=== PATIENT | female | born 1960 | race Caucasian/White ===

== ENCOUNTER 2022-01-05 15:09 | Inpatient (IN) ==
[2022-01-05] MEDS ORDERED: 0.9 % SODIUM CHLORIDE 1,000 ML IV ONE (15:30)
[2022-01-05 15:42] LABS: POC Blood Urea Nitrogen < 3 (6-20); POC Calcium, Ionized 0.96 (1.16-1.32); POC Chloride 87 (96-108); POC Glucose, Random 76 (70-105); POC Potassium 2.7 (3.3-5.1); POC Sodium 122 (133-145)
[2022-01-05] MEDS ORDERED: HYDROmorphone 0.5 MG/0.5 ML SYRINGE IV ONE (15:55)
[2022-01-05] MEDS ORDERED: DIPH,PERTUSS(ACELL),TET VAC/PF 0.5 ML SYRINGE IM ONE (15:55)
--- NOTE | 2022-01-05 15:58 | XRay Report ---
HISTORY: Fell with left wrist injury FINDINGS: There is an acute severely comminuted intra-articular fracture the distal radius. There is impaction of the distal end of the bone with dorsal angulation. The carpal bones remain aligned with the fractured radius. The carpal bones are normally aligned with one another and there is no fracture of the carpal bones. The overlying soft tissues are swollen. Distal ulna is normal. IMPRESSION: Comminuted fracture of the distal radius with significant deformity Interpreted and Authenticated by: Reza Sampson 01/05/22
--- NOTE | 2022-01-05 16:18 | Cat Scan Report ---
History: Fell with head and neck injuries TECHNIQUE: The brain was imaged without contrast in axial plane at 2.5 mm intervals. The radiation exposure was limited using dose reduction technology. FINDINGS: There is a small scalp hematoma in the left temporal region, lateral to the left orbit. There are few tiny bubbles of air beneath the laceration. The adjacent bones are normal. Although the orbits are not completely visualized, there is no evidence of an orbital fracture and there is no intraorbital hemorrhage or edema. No skull fracture is present. There is no intracranial hemorrhage or cerebral edema. Patient has generalized atrophy both above and below the tentorium with the greatest involvement around the sylvian fissures. There is no mass effect. Ventricles are prominent but proportionate to the atrophy. No abnormal extra-axial fluid collection is present. IMPRESSION: Small hematoma beneath the skin laceration in the left temporal region. No fracture Age-related degenerative changes and no evidence of acute brain injury Dr. Benjamin was called with the results Interpreted and Authenticated by: Reza Sampson 01/05/22
--- NOTE | 2022-01-05 16:18 | Cat Scan Report ---
History: Fell, neck and head injury TECHNIQUE: The neck was imaged without contrast in axial plane at 2.5 mm intervals. Sagittal and coronal reformats were created. The radiation exposure was limited using dose reduction technology. FINDINGS: The cervico-occipital junction is normal. The vertebral bodies are normal in height. There is no fracture or spondylolisthesis. There is mild osteoarthritis at several levels. The greatest degeneration is in the right side facet at C3-4 resulting in moderate stenosis of the right-sided neural foramen. There is also moderate stenosis of the left-sided neural foramen at C3-4 due to spurs. Mild arthritis is present in the facets bilaterally at C4-5, C5-6 and C6-7. The disc spaces are normal in height. There is no prevertebral soft tissue swelling. There are are small ill-defined zones of groundglass alveolar opacification in the posterior apical segment left upper lobe and to a lesser extent in the posterior apical segment of the right upper lobe. This could be due to atelectasis or low level nonspecific inflammation. Visualized portions of the ribs clavicles and upper thoracic vertebra are normal without evidence of a fracture. IMPRESSION: No fracture Arthritis at several levels resulting in stenosis of the neural foramina Dr. Benjamin was called with the report Interpreted and Authenticated by: Reza Sampson 01/05/22
[2022-01-05] MEDS ORDERED: HYDROmorphone 1 MG/ML SYRINGE ONE (16:24)
[2022-01-05 16:33] LABS: Basophils # (Auto) 0.04 K/mcL (0.00-0.30); Basophils % (Auto) 0.7 % (0.0-2.0); Eosinophils # (Auto) 0.05 K/mcL (0.00-0.70); Eosinophils % (Auto) 0.9 % (0.0-7.0); Hematocrit 29.5 % (34.1-44.9); Hemoglobin 10.5 g/dL (11.2-15.7); Lymphocytes # (Auto) 1.18 K/mcL (1.50-4.80); Mean Cell Volume 101.4 fL (80.0-100.0); Mean Corpuscular HGB Conc 35.6 g/dL (31.0-36.0); Monocytes # (Auto) 0.79 K/mcL (0.10-0.90); Neutrophils % (Auto) 63.4 % (38.0-78.0); Platelet Count 325 K/mcL (140-440); RBC 2.91 M/mcL (3.59-5.38); Red Cell Distribution Width 14.1 % (11.5-14.5); WBC 5.6 K/mcL (4.5-11.0)
--- NOTE | 2022-01-05 16:40 | XRay Report ---
HISTORY: Post reduction of fractured left radius FINDINGS: There is improved alignment following closed reduction of the fracture distal radius. The dorsal angulation seen on the earlier study has been corrected. There is still impaction and lateral deviation of the distal radius. There is very little separation of bone at the articular surface. IMPRESSION: Residual deformity in the wrist. There has been moderate improvement in the alignment following closed reduction Interpreted and Authenticated by: Reza Sampson 01/05/22
[2022-01-05] MEDS ORDERED: POTASSIUM CHLORIDE 40 MEQ in DEXTROSE 5% IN WATER 500 ML IV ONE (16:50)
[2022-01-05 16:51] LABS: Alcohol,Blood 0.252 gm/dL (<0.010)
[2022-01-05] MEDS ORDERED: HYDROmorphone 1 MG/ML SYRINGE IV ONE (16:54)
[2022-01-05 16:56] LABS: ALT/SGPT 48 U/L (<40); AST/SGOT 82 U/L (<32); Albumin 3.6 gm/dL (3.2-5.2); Alkaline Phosphatase 192 U/L (39-117); Bilirubin,Direct < 0.2 mg/dL (0-0.3); Bilirubin,Total 0.3 mg/dL (0.1-1.0); Globulin 2.6 gm/dL (2.2-3.7)
--- NOTE | 2022-01-05 17:10 | XRay Report ---
HISTORY: Fell, fractured distal left radius FINDINGS: Three views of the left elbow were obtained. The bones are partially obscured by overlying plaster cast material. There is no evidence of fracture or dislocation. Joint spaces are normal in width. IMPRESSION: Limited exam, without evidence of a fracture Interpreted and Authenticated by: Reza Sampson 01/05/22
--- NOTE | 2022-01-05 17:12 | XRay Report ---
HISTORY: Postreduction fractured left distal radius FINDINGS: There is a comminuted intra-articular fracture the distal radius. On the lateral view there is a fragment arising from the volar side of the distal radius which is rotated and displaced proximally. The alignment has shifted compared with the post reduction image done earlier on the same date. There still impaction fracture sites with foreshortening of the radius. IMPRESSION: Abnormal rotation and displacement of a large bone fragment along the volar side of the distal radius Interpreted and Authenticated by: Reza Sampson 01/05/22
--- NOTE | 2022-01-05 17:32 | Emergency Department Note ---
HPI General Chief complaint: Head Injury Stated complaint: fall Time Seen by Provider: 01/05/22 15:20 Mode of arrival: wheelchair History of Present Illness HPI Narrative: Narrative: Patient presents to the emergency department with a syncopal episode. The patient was a ground-level she reports that she just blacked out. Patient denies any chest pain, lightheadedness or palpitations. Patient is complaining of left wrist pain and headache. She sustained a laceration to the left forehead. She is unsure of her tetanus status. Her reports that she has had falls previously and has been told that it is related to alcohol consumption. Patient states that she does not drink every day and maybe has 12 beers a week. She states that she has gone several days without drinking. The states that she actually drinks about 12 beers a day he does not recall any period of time where she has abstained from drinking. He denies ever having a alcohol withdrawal seizure. Related Data Home Medications Medication Instructions Recorded Confirmed cholecalciferol (vitamin D3) 50 2,000 unit PO .MWF cap 11/29/20 01/05/22 mcg (2,000 unit) capsule ibuprofen 200 mg tablet 200 mg PO BID 01/05/22 01/05/22 Previous Rx's Medication Instructions Recorded pantoprazole 40 mg tablet,delayed 40 mg PO QAM #90 tab 05/03/21 release duloxetine 60 mg capsule,delayed See Rx Instructions .ROUTE 05/10/21 release .COMPLEX #90 capsule amlodipine 5 mg tablet 5 mg PO QHS #90 tab 05/23/21 sodium chloride 1 gram tablet 2,000 mg PO .MWF #90 tab 05/23/21 alendronate 70 mg tablet 70 mg PO QWEEK #14 tab 07/28/21 losartan 50 mg tablet See Rx Instructions .ROUTE 11/07/21 .COMPLEX #60 tab rosuvastatin 10 mg tablet 10 mg PO QDAY #90 tab 12/12/21 bupropion HCl 75 mg tablet 150 mg PO QDAY #60 tab 12/15/21 hydrocodone 7.5 mg-acetaminophen 1 tab PO Q4-6H PRN #120 tab 01/05/22 325 mg tablet Allergies Allergy/AdvReac Type Severity Reaction Status Date / Time No Known Drug Allergies Allergy Verified 01/05/22 15:12 Review of Systems ROS ROS Narrative: Narrative: All systems ED: reviewed and negative except as stated. PFSH Narrative Patient History Narrative: Narrative: Medical/Surgical/Family History All Active Problems (Updated 01/05/22 @ 19:[address] Can[address] MD) Alcohol withdrawal (Acute) Acute hyponatremia (Acute) Acute hypokalemia (Acute) Fracture of left wrist (Acute) CAD (coronary artery disease) (Acute) Pulmonary nodule (Acute) Aphthous stomatitis (Acute) Candidiasis of mouth (Acute) Anemia (Acute) Pharyngitis (Acute) Encounter for medication management (Acute) Fracture of rib of left side (Acute) Urinary incontinence (Acute) Elevated liver enzymes (Acute) Hx of bone density study (Chronic 01/22/18) H/O mammogram (Chronic 05/06/19) Hemorrhoids (Chronic) Nervousness (Chronic) Bowel trouble (Chronic) Heart palpitations (Chronic) History of frequent headaches (Chronic) Right knee pain (Acute) Alcohol consumption heavy (Acute) Frequent ventricular premature beats (Acute) Abnormal electrocardiogram [ECG] [EKG] (Acute) Osteopenia (Acute) Cerumen impaction (Acute) Other fracture of shaft of left humerus, initial encounter for closed fracture (Acute) HTN (hypertension) (Acute) Hand pain, left (Acute) Hyponatremia (Acute) Stress incontinence (Acute) Well adult exam (Acute) Hyperlipidemia (Acute) Cigarette smoker (Acute) Hip pain (Acute) Depression (Acute) Pure hypercholesterolemia, unspecified (Acute) Insomnia (Acute) 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 (Acute) Low back pain (Acute) Anxiety (Acute) Radiculopathy, lumbar region (Acute) Medical History (Updated 01/05/22 @ 19:[address] Canales MD) Abnormal electrocardiogram [ECG] [EKG] Alcohol consumption heavy Anxiety Bowel trouble Cerumen impaction Cigarette smoker Depression Frequent ventricular premature beats H/O mammogram (05/06/19) [facility] Hand pain, left Heart palpitations Hemorrhoids Hip pain History of frequent headaches HTN (hypertension) Hx of bone density study (01/22/18) Normal, Osteopenia Hyperlipidemia Hyponatremia Insomnia Low back pain Nervousness Osteopenia Other fracture of shaft of left humerus, initial encounter for closed fracture Other chcf (current) drug therapy Pure hypercholesterolemia, unspecified Radiculopathy, lumbar region Stress incontinence Well adult exam Surgical History H/O lumbar discectomy 2006 and 2009 History of hysterectomy (07/04/84) Hx of colonoscopy (03/13/16) Hx of lumbar discectomy (~2006) Hx of lumbar discectomy (~2009) [place] teeth extracted (~1982) Family History Father , age 57 Renal cell cancer Family/Other Pancreatic cancer Brother , 42 Skull fracture Social History Smoking Status: Current every day smoker Alcohol Intake Frequency: 0-2 drinks per day Substance Use: does not use Exam Narrative Narrative: Narrative: Vital signs noted General: Awake. Alert. Moderate distress, smells of alcohol HEENT: 1 cm laceration to the left anglican, extraocular movements are intact Neck: No cervical spinal tenderness to palpation in the midline Cardiovascular: Tachycardic, no murmurs Respiratory: No respiratory distress, breath sounds are equal lungs are clear Gastrointestinal: Soft. No tenderness Musculoskeletal: Deformity to the left wrist, there is no open injury, patient has a palpable radial pulse good cap refill and warm distal fingers, patient is able to make thumbs up, has difficulty with okay sign sensation is intact at the median, ulnar and radial nerve distributions to light touch Skin: Laceration as above Course Vital Signs Vital signs: Vital Signs Temperature 97.0 F 01/05/22 15:09 Pulse Rate 113 H 01/05/22 15:09 Respiratory Rate 16 01/05/22 15:09 Blood Pressure 88/60 01/05/22 15:09 Pulse Oximetry (%) 100 01/05/22 15:09 Temperature 97.6 F 01/06/22 00:06 Pulse Rate 99 H 01/06/22 00:06 Respiratory Rate 19 01/06/22 00:06 Blood Pressure 112/74 01/06/22 00:06 Pulse Oximetry (%) 96 01/06/22 00:06 [facility] MDM Narrative Medical decision making narrative: Narrative: Patient presents to the emergency department with a chief complaint of headache, left wrist pain. Patient had a ground-level fall she reports a syncopal event. Patient smells of alcohol she has had falls previously and passing out secondary to alcohol use. believes patient drinks about 12 beers a day. Patient does have a distal radius fracture that is closed. Hematoma block was attempted reduction was without significant improvement in foreshortening it is intra-articular. I have spoken with Dr. Mujica who recommends CT scan of the wrist. CT Noncon of the brain and cervical spine reveals no bony abnormality or intracranial hemorrhage. Patient's tetanus was updated laceration was repaired on her left forehead. Her extraocular movements are intact no evidence clinically of entrapment there is no facial bone fractures on CT of the head. In addition patient has an alcohol of 252, her sodium is 122 with a potassium of 2.9. Patient was mildly hypotensive she was fluid responsive. Patient was given a total of 1.5 mg of Dilaudid during the reduction for her left wrist pain. Patient received 1 L of normal saline for her hyponatremia and 40 mill equivalents of K rider was also ordered.Patient signed out to Dr. Garza awaiting ortho recommendations. Lab Data Result diagrams: 01/05/22 15:27 Labs: Lab Results 01/05/22 01/05/22 01/05/22 Range/Units 15:27 15:27 15:27 WBC 5.6 (4.5-11.0) K/mcL RBC 2.91 L (3.59-5.38) M/mcL Hgb 10.5 L (11.2-15.7) g/dL Hct 29.5 L (34.1-44.9) % POC Hct (36-48) MCV 101.4 H (80.0-100.0) fL MCH 36.1 H (26.0-34.0) pg MCHC 35.6 (31.0-36.0) g/dL RDW 14.1 (11.5-14.5) % Plt Count 325 (140-440) K/mcL MPV 9.0 (7.4-10.4) fL Neut % (Auto) 63.4 (38.0-78.0) % Lymph % (Auto) 21.0 (15.5-49.0) % [place] % (Auto) 14.0 H (1.0-12.0) % Eos % (Auto) 0.9 (0.0-7.0) % Baso % (Auto) 0.7 (0.0-2.0) % Lymph # (Auto) 1.18 L (1.50-4.80) K/mcL [place] # (Auto) 0.79 (0.10-0.90) K/mcL Eos # (Auto) 0.05 (0.00-0.70) K/mcL Baso # (Auto) 0.04 (0.00-0.30) K/mcL Absolute Neutrophils 3.57 (1.80-8.00) K/mcL POC Sodium (133-145) POC Potassium (3.3-5.1) POC Chloride (96-108) POC Total CO2 (22-30) POC BUN (6-20) POC Creatinine (0.6-1.2) POC Glucose (70-105) POC WB Ioniz Calcium (1.16-1.32) Magnesium (1.6-2.5) mg/dL Total Bilirubin 0.3 (0.1-1.0) mg/dL Direct Bilirubin < 0.2 (0-0.3) mg/dL AST 82 H (<32) U/L ALT 48 H (<40) U/L Alkaline Phosphatase 192 H (39-117) U/L Total Protein 6.2 (5.9-8.4) gm/dL Albumin 3.6 (3.2-5.2) gm/dL Globulin 2.6 (2.2-3.7) gm/dL Ethyl Alcohol 0.252 H (<0.010) gm/dL POC Troponin I (0.02-0.08) 01/05/22 01/05/22 01/05/22 Range/Units 15:27 15:37 15:37 WBC (4.5-11.0) K/mcL RBC (3.59-5.38) M/mcL Hgb (11.2-15.7) g/dL Hct (34.1-44.9) % POC Hct 31.0 L (36-48) MCV (80.0-100.0) fL MCH (26.0-34.0) pg MCHC (31.0-36.0) g/dL RDW (11.5-14.5) % Plt Count (140-440) K/mcL MPV (7.4-10.4) fL Neut % (Auto) (38.0-78.0) % Lymph % (Auto) (15.5-49.0) % [place] % (Auto) (1.0-12.0) % Eos % (Auto) (0.0-7.0) % Baso % (Auto) (0.0-2.0) % Lymph # (Auto) (1.50-4.80) K/mcL [place] # (Auto) (0.10-0.90) K/mcL Eos # (Auto) (0.00-0.70) K/mcL Baso # (Auto) (0.00-0.30) K/mcL Absolute Neutrophils (1.80-8.00) K/mcL POC Sodium 122 L (133-145) POC Potassium 2.7 L* (3.3-5.1) POC Chloride 87 L (96-108) POC Total CO2 20.0 L (22-30) POC BUN < 3 L (6-20) POC Creatinine 1.0 (0.6-1.2) POC Glucose 76 (70-105) POC WB Ioniz Calcium 0.96 L (1.16-1.32) Magnesium 1.9 (1.6-2.5) mg/dL Total Bilirubin (0.1-1.0) mg/dL Direct Bilirubin (0-0.3) mg/dL AST (<32) U/L ALT (<40) U/L Alkaline Phosphatase (39-117) U/L Total Protein (5.9-8.4) gm/dL Albumin (3.2-5.2) gm/dL Globulin (2.2-3.7) gm/dL Ethyl Alcohol (<0.010) gm/dL POC Troponin I 0.01 L (0.02-0.08) EKG Data EKG #1: EKG attestation: Yes I reviewed and interpreted this EKG., Yes There are no EKG findings of acute coronary syndrome and Yes This EKG will be read by facility maintenance worker EKG results narrative: EKG per my interpretation shows a sinus rhythm with a heart rate of 90 there is PVCs, there is normal axis normal R wave progression no evidence of ST elevations or ST depressions Procedures Laceration Laceration 1: Site: forehead Length of wound repaired (cm): 2 Description: Present linear Depth: simple, single layer Local Anesthetic: lidocaine 1% Amount of Anesthesia Used (mL): 2 Skin layer closed with: nylon Size: 5-0 Number of sutures: 2 Technique: simple, interrupted Orthopedic Fracture Reduction Fracture #1: Consent Obtained: verbal consent Time Out Performed: No Side: left Fracture Reduction Location: radius Analgesia: hematoma block Technique: direct manipulation Post Reduction X-rays Demonstrate: other (mild improvement, ortho consulted for ORIF) Post-reduction neuro exam: no change Post-reduction vascular exam: no change Splint Applied: Yes Patient Tolerated Procedure: well Discharge Plan Patient/Caregiver Discharge Instructions Pt seen by BASIC ACOUSTIC ANALYST/PA only: No Clinical Impression: Acute hyponatremia, Acute hypokalemia, Fracture of left wrist Patient Disposition: Still a Patient Condition: Fair Discharge Date/Time: 01/05/22 20:11
--- NOTE | 2022-01-05 17:41 | Cat Scan Report ---
History: Fracture distal right radius, preop evaluation TECHNIQUE: The right forearm was imaged without contrast in axial plane. Sagittal, coronal and reformatted axial images were created. The radiation exposure was limited using dose reduction technology. FINDINGS: There is an acute severely comminuted intra-articular fracture of the distal radius. The bones are impacted resulting in foreshortening of the radius. On the AP view the distal end of the radius is displaced laterally 8 mm. On the lateral view there is a 1.5 cm bone chip arising from the volar side of the distal radius which is rotated and displaced distally. There is up to 6 mm gap along the articular surface of the radius. The shaft of the radius is normal. The ulna is intact. The carpal bones are normally aligned with the fractured radius. There is no fracture of the carpal bones. IMPRESSION: Comminuted intra-articular fracture of the distal radius with foreshortening and moderate displacement of bone fragments Interpreted and Authenticated by: Reza Sampson 01/05/22
--- NOTE | 2022-01-05 18:52 | Emergency Department Note ---
Course Vital Signs Vital signs: Vital Signs Temperature 36.1 C 01/05/22 15:09 Pulse Rate 113 H 01/05/22 15:09 Respiratory Rate 16 01/05/22 15:09 Blood Pressure 88/60 01/05/22 15:09 Pulse Oximetry (%) 100 01/05/22 15:09 Temperature 36.1 C 01/05/22 15:09 Pulse Rate 105 H 01/05/22 18:32 Respiratory Rate 21 01/05/22 18:32 Blood Pressure 95/85 01/05/22 17:40 Pulse Oximetry (%) 97 01/05/22 18:32 MDM MDM Narrative Medical decision making narrative: Narrative: Patient seen and evaluated by Dr. Benjamin; hypoNa, HypoK, syncope. magnesium is within normal, I have spoken with the hospitalist who will come down to admit the patient for syncope and electrolyte disturbances. I did also speak with Dr. Mujica who will plan to operatively fix her wrist tomorrow during the admission Lab Data Result diagrams: 01/05/22 15:27 Labs: Lab Results 01/05/22 01/05/22 01/05/22 Range/Units 15:27 15:27 15:27 WBC 5.6 (4.5-11.0) K/mcL RBC 2.91 L (3.59-5.38) M/mcL Hgb 10.5 L (11.2-15.7) g/dL Hct 29.5 L (34.1-44.9) % POC Hct (36-48) MCV 101.4 H (80.0-100.0) fL MCH 36.1 H (26.0-34.0) pg MCHC 35.6 (31.0-36.0) g/dL RDW 14.1 (11.5-14.5) % Plt Count 325 (140-440) K/mcL MPV 9.0 (7.4-10.4) fL Neut % (Auto) 63.4 (38.0-78.0) % Lymph % (Auto) 21.0 (15.5-49.0) % [place] % (Auto) 14.0 H (1.0-12.0) % Eos % (Auto) 0.9 (0.0-7.0) % Baso % (Auto) 0.7 (0.0-2.0) % Lymph # (Auto) 1.18 L (1.50-4.80) K/mcL [place] # (Auto) 0.79 (0.10-0.90) K/mcL Eos # (Auto) 0.05 (0.00-0.70) K/mcL Baso # (Auto) 0.04 (0.00-0.30) K/mcL Absolute Neutrophils 3.57 (1.80-8.00) K/mcL POC Sodium (133-145) POC Potassium (3.3-5.1) POC Chloride (96-108) POC Total CO2 (22-30) POC BUN (6-20) POC Creatinine (0.6-1.2) POC Glucose (70-105) POC WB Ioniz Calcium (1.16-1.32) Magnesium (1.6-2.5) mg/dL Total Bilirubin 0.3 (0.1-1.0) mg/dL Direct Bilirubin < 0.2 (0-0.3) mg/dL AST 82 H (<32) U/L ALT 48 H (<40) U/L Alkaline Phosphatase 192 H (39-117) U/L Total Protein 6.2 (5.9-8.4) gm/dL Albumin 3.6 (3.2-5.2) gm/dL Globulin 2.6 (2.2-3.7) gm/dL Ethyl Alcohol 0.252 H (<0.010) gm/dL POC Troponin I (0.02-0.08) 01/05/22 01/05/22 01/05/22 Range/Units 15:27 15:37 15:37 WBC (4.5-11.0) K/mcL RBC (3.59-5.38) M/mcL Hgb (11.2-15.7) g/dL Hct (34.1-44.9) % POC Hct 31.0 L (36-48) MCV (80.0-100.0) fL MCH (26.0-34.0) pg MCHC (31.0-36.0) g/dL RDW (11.5-14.5) % Plt Count (140-440) K/mcL MPV (7.4-10.4) fL Neut % (Auto) (38.0-78.0) % Lymph % (Auto) (15.5-49.0) % [place] % (Auto) (1.0-12.0) % Eos % (Auto) (0.0-7.0) % Baso % (Auto) (0.0-2.0) % Lymph # (Auto) (1.50-4.80) K/mcL [place] # (Auto) (0.10-0.90) K/mcL Eos # (Auto) (0.00-0.70) K/mcL Baso # (Auto) (0.00-0.30) K/mcL Absolute Neutrophils (1.80-8.00) K/mcL POC Sodium 122 L (133-145) POC Potassium 2.7 L* (3.3-5.1) POC Chloride 87 L (96-108) POC Total CO2 20.0 L (22-30) POC BUN < 3 L (6-20) POC Creatinine 1.0 (0.6-1.2) POC Glucose 76 (70-105) POC WB Ioniz Calcium 0.96 L (1.16-1.32) Magnesium 1.9 (1.6-2.5) mg/dL Total Bilirubin (0.1-1.0) mg/dL Direct Bilirubin (0-0.3) mg/dL AST (<32) U/L ALT (<40) U/L Alkaline Phosphatase (39-117) U/L Total Protein (5.9-8.4) gm/dL Albumin (3.2-5.2) gm/dL Globulin (2.2-3.7) gm/dL Ethyl Alcohol (<0.010) gm/dL POC Troponin I 0.01 L (0.02-0.08) Discharge Plan Patient/Caregiver Discharge Instructions Pt seen by FLUE GAS ANALYST/PA only: No Clinical Impression: Acute hyponatremia, Acute hypokalemia, Fracture of left wrist Patient Disposition: Xfer As Inpt ([facility]) Condition: Fair Follow up with: Holli Godinez ARNP [Primary Care Provider] - Prescriptions: No Action diclofenac epolamine [Flector] 1.3 % patch 12 hour 1 patch TOPICAL Q12H 0RF cholecalciferol (vitamin D3) 50 mcg (2,000 unit) capsule 2,000 unit PO .MWF 0RF pantoprazole 40 mg tablet,delayed release (DR/EC) 40 mg PO QAM Qty: 90 2RF amlodipine 5 mg tablet 5 mg PO QHS Qty: 90 2RF sodium chloride 1 gram tablet 2,000 mg PO .MWF Qty: 90 0RF alendronate 70 mg tablet 70 mg PO QWEEK Qty: 14 3RF meloxicam 7.5 mg tablet See Rx Instructions .ROUTE .COMPLEX Qty: 180 2RF Dose Instruction: TAKE 1 TABLET BY MOUTH TWICE DAILY NEEDED FOR JOINT PAIN Rx Instructions: TAKE 1 TABLET BY MOUTH TWICE DAILY NEEDED FOR JOINT PAIN losartan 50 mg tablet See Rx Instructions .ROUTE .COMPLEX Qty: 60 2RF Dose Instruction: TAKE 1 TABLET BY MOUTH EVERY MORNING AND 1 TABLET EVERY EVENING Rx Instructions: TAKE 1 TABLET BY MOUTH EVERY MORNING AND 1 TABLET EVERY EVENING nystatin 100,000 unit/mL suspension 5 ml PO QID 10 Days Qty: 200 0RF Rx Instructions: swish and swallow bupropion HCl 75 mg tablet 150 mg PO QDAY Qty: 60 3RF hydrocodone-acetaminophen 7.5-325 mg tablet 1 tab PO Q4-6H PRN (Reason: pain) Qty: 120 0RF duloxetine 60 mg capsule,delayed release(DR/EC) See Rx Instructions .ROUTE .COMPLEX Qty: 90 4RF Dose Instruction: TAKE 1 CAPSULE BY MOUTH EVERY DAY Rx Instructions: TAKE 1 CAPSULE BY MOUTH EVERY DAY valacyclovir [Valtrex] 1 gram tablet 1,000 mg PO .COMPLEX Qty: 4 0RF Rx Instructions: 1,000 mg PO 2 tablets q 12 hrs x 1 day; rosuvastatin 10 mg tablet 10 mg PO QDAY Qty: 90 3RF
--- NOTE | 2022-01-05 19:05 | Internal Med History&Physical ---
HPI History of Present Illness Patient information: Note initiated : 01/05/22 at 7:05 pm Service Date, if different from initiated Date: [as above] Patient: Agueda Ornelas a 61 y/o F admitted on for fall. Chief Complaint: [LOC] Chief complaint: Syncope, wrist fracture History of present illness: Ms. Ornelas is a 61 year old F smoker with a past medical history significant for CAD, COPD, and EtOH abuse who presents to the hospital with syncope. The patient initially denied drinking heavily however her states that she drinks at a minimum 12 beers daily. The patient states that she was at her motor home when she lost balance and then lost consciousness. She is not completely recall all the events preceding her syncopal episode. Her brought her to the emergency department for further management and evaluation. She had full set of trauma imaging including upper extremity CT, wrist x-ray, elbow x-ray, CT and C-spine CT. The patient's head CT was unrevealing and revealed small hematoma beneath the skin laceration in the left temporal region. CT of the upper extremity revealed fracture of the distal right radius. Lab work revealed a potassium of 2.7, sodium of 122, ALT 48, AST of 82 and an ethyl alcohol level of 0.252. The hospitalist service was asked admit the patient for comanagement to treat her possible alcohol withdrawal and address her multiple electrolyte derangements. Orthopedic surgery will be consulted and she will be taken to the OR tomorrow. Review of Systems All systems: reviewed and no additional remarkable complaints except as stated Constitutional Constitutional: Present as per HPI EENT Eyes: Present as per HPI; Absent blurry vision Cardiovascular Cardiovascular: Present as per HPI; Absent chest pain, dyspnea, dyspnea on exertion, leg edema or palpatations Respiratory Respiratory: Present as per HPI; Absent cough, dyspnea, dyspnea on exertion, wheezing or stridor Gastrointestinal Gastrointestinal: Present as per HPI; Absent abdominal pain, diarrhea, dysphagia, hematemesis, melena, nausea or vomiting Musculoskeletal Musculoskeletal: Present as per HPI; Absent joint swelling, limited range of motion, muscle cramps, muscle weakness or myalgias Integumentary Integumentary: Present as per HPI; Absent erythema, new lesions, rash or wounds Neurological Neurological: Present as per HPI; Absent abnormal gait, behavioral changes, focal weakness, headache(s), loss of vision, numbness, sensory deficit or syncope Endocrine Endocrine: Absent change in body appearance, fatigue or heat intolerance Hematologic/Lymphatic Hematologic/Lymphatic: Present as per HPI PFSH PFSH All Active Problems (Updated 01/05/22 @ 19:[address] Canales MD) Alcohol withdrawal (Acute) Acute hyponatremia (Acute) Acute hypokalemia (Acute) Fracture of left wrist (Acute) CAD (coronary artery disease) (Acute) Pulmonary nodule (Acute) Aphthous stomatitis (Acute) Candidiasis of mouth (Acute) Anemia (Acute) Pharyngitis (Acute) Encounter for medication management (Acute) Fracture of rib of left side (Acute) Urinary incontinence (Acute) Elevated liver enzymes (Acute) Hx of bone density study (Chronic 01/22/18) H/O mammogram (Chronic 05/06/19) Hemorrhoids (Chronic) Nervousness (Chronic) Bowel trouble (Chronic) Heart palpitations (Chronic) History of frequent headaches (Chronic) Right knee pain (Acute) Alcohol consumption heavy (Acute) Frequent ventricular premature beats (Acute) Abnormal electrocardiogram [ECG] [EKG] (Acute) Osteopenia (Acute) Cerumen impaction (Acute) Other fracture of shaft of left humerus, initial encounter for closed fracture (Acute) HTN (hypertension) (Acute) Hand pain, left (Acute) Hyponatremia (Acute) Stress incontinence (Acute) Well adult exam (Acute) Hyperlipidemia (Acute) Cigarette smoker (Acute) Hip pain (Acute) Depression (Acute) Pure hypercholesterolemia, unspecified (Acute) Insomnia (Acute) 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 (Acute) Low back pain (Acute) Anxiety (Acute) Radiculopathy, lumbar region (Acute) Medical History (Updated 01/05/22 @ 19:[address] Canales MD) Abnormal electrocardiogram [ECG] [EKG] Alcohol consumption heavy Anxiety Bowel trouble Cerumen impaction Cigarette smoker Depression Frequent ventricular premature beats H/O mammogram (05/06/19) [facility] Hand pain, left Heart palpitations Hemorrhoids Hip pain History of frequent headaches HTN (hypertension) Hx of bone density study (01/22/18) Normal, Osteopenia Hyperlipidemia Hyponatremia Insomnia Low back pain Nervousness Osteopenia Other fracture of shaft of left humerus, initial encounter for closed fracture 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 Pure hypercholesterolemia, unspecified Radiculopathy, lumbar region Stress incontinence Well adult exam Surgical History H/O lumbar discectomy 2006 and 2009 History of hysterectomy (07/04/84) Hx of colonoscopy (03/13/16) Hx of lumbar discectomy (~2006) Hx of lumbar discectomy (~2009) [place] teeth extracted (~1982) Family History Father , age 57 Renal cell cancer Family/Other Pancreatic cancer Brother , 42 Skull fracture Social History household members: spouse lives independently: No marital status: leisure activities: reading and other physical activity: walking frequency: daily alcohol intake frequency: 0-2 drinks per day substance use type: does not use MEDS/ALLERGIES Home Medications and Allergies Home Medications Medication Instructions Recorded Confirmed Type diclofenac epolamine 1.3 % 1 patch TOPICAL Q12H 06/04/19 12/12/21 History transdermal 12 hour patch (Flector) cholecalciferol (vitamin D3) 50 2,000 unit PO .MWF cap 11/29/20 12/12/21 History mcg (2,000 unit) capsule pantoprazole 40 mg tablet,delayed 40 mg PO QAM #90 tab 05/03/21 12/12/21 Rx release duloxetine 60 mg capsule,delayed See Rx Instructions .ROUTE 05/10/21 12/12/21 Rx release .COMPLEX #90 capsule amlodipine 5 mg tablet 5 mg PO QHS #90 tab 05/23/21 12/12/21 Rx sodium chloride 1 gram tablet 2,000 mg PO .MWF #90 tab 05/23/21 12/12/21 Rx alendronate 70 mg tablet 70 mg PO QWEEK #14 tab 07/28/21 12/12/21 Rx meloxicam 7.5 mg tablet See Rx Instructions .ROUTE 08/08/21 12/12/21 Rx .COMPLEX #180 tablet losartan 50 mg tablet See Rx Instructions .ROUTE 11/07/21 12/12/21 Rx .COMPLEX #60 tab valacyclovir 1 gram tablet 1,000 mg PO .COMPLEX #4 tab 11/29/21 12/12/21 Rx (Valtrex) nystatin 100,000 unit/mL oral 5 ml PO QID 10 Days #200 ml 12/06/21 12/12/21 Rx suspension rosuvastatin 10 mg tablet 10 mg PO QDAY #90 tab 12/12/21 12/12/21 Rx bupropion HCl 75 mg tablet 150 mg PO QDAY #60 tab 12/15/21 Rx hydrocodone 7.5 mg-acetaminophen 1 tab PO Q4-6H PRN #120 tab 01/05/22 Rx 325 mg tablet Allergies Allergy/AdvReac Type Severity Reaction Status Date / Time No Known Drug Allergies Allergy Verified 01/05/22 15:12 EXAM Constitutional Vitals: Temp Pulse Resp BP Pulse Ox 97.0 F 105 H 21 95/85 97 01/05/22 15:09 01/05/22 18:32 01/05/22 18:32 01/05/22 17:40 01/05/22 18:32 General appearance: average body habitus Head Head exam: Present atraumatic, normal inspection and normocephalic Eye Eye exam: Present EOMI, normal appearance and PERRL; Absent conjunctival injection ENT ENT exam: Present normal exam; Absent mucous membranes dry Neck Neck exam: Present full ROM; Absent lymphadenopathy Respiratory Respiratory exam: Present normal respiratory exam and CTAB; Absent decreased breath sounds, respiratory distress or wheezes Cardiovascular Cardiovascular exam: Present normal rate and rhythm and RRR; Absent JVD GI/Abdominal GI/Abdominal exam: Present normal bowel sounds and soft; Absent diminished bowel sounds, distended, guarding, mass, rebound or tenderness Neurological Exam Neurological exam: Present alert, CN II-XII intact and oriented X3 Psychiatric Psychiatric exam: Present normal affect and normal mood Skin Skin exam: Present intact and warm; Absent erythema, pallor, petechiae or rash DATA Data Completed and Pending Labs: Labs from last 24 hours 01/05/22 01/05/22 01/05/22 15:37 15:37 15:27 WBC RBC Hgb Hct POC Hct 31.0 L MCV MCH MCHC RDW Plt Count MPV Neut % (Auto) Lymph % (Auto) [place] % (Auto) Eos % (Auto) Baso % (Auto) Lymph # (Auto) [place] # (Auto) Eos # (Auto) Baso # (Auto) Absolute Neutrophils POC Sodium 122 L POC Potassium 2.7 L* POC Chloride 87 L POC Total CO2 20.0 L POC BUN < 3 L POC Creatinine 1.0 POC Glucose 76 POC WB Ioniz Calcium 0.96 L Magnesium 1.9 Total Bilirubin Direct Bilirubin AST ALT Alkaline Phosphatase Total Protein Albumin Globulin Ethyl Alcohol POC Troponin I 0.01 L 01/05/22 01/05/22 01/05/22 15:27 15:27 15:27 WBC 5.6 RBC 2.91 L Hgb 10.5 L Hct 29.5 L POC Hct MCV 101.4 H MCH 36.1 H MCHC 35.6 RDW 14.1 Plt Count 325 MPV 9.0 Neut % (Auto) 63.4 Lymph % (Auto) 21.0 [place] % (Auto) 14.0 H Eos % (Auto) 0.9 Baso % (Auto) 0.7 Lymph # (Auto) 1.18 L [place] # (Auto) 0.79 Eos # (Auto) 0.05 Baso # (Auto) 0.04 Absolute Neutrophils 3.57 POC Sodium POC Potassium POC Chloride POC Total CO2 POC BUN POC Creatinine POC Glucose POC WB Ioniz Calcium Magnesium Total Bilirubin 0.3 Direct Bilirubin < 0.2 AST 82 H ALT 48 H Alkaline Phosphatase 192 H Total Protein 6.2 Albumin 3.6 Globulin 2.6 Ethyl Alcohol 0.252 H POC Troponin I A/P Assessment and plan (1) Acute hyponatremia: Status: Acute (2) Acute hypokalemia: Status: Acute (3) Fracture of left wrist: Status: Acute (4) CAD (coronary artery disease): Status: Acute (5) Osteopenia: Status: Acute (6) Cigarette smoker: Status: Acute (7) Alcohol withdrawal: Status: Acute Narrative A/P Narrative: In terms of medical management, the patient's sodium is likely hypovolemic hyponatremic in etiology and she will be resuscitated with NS. Her potassium will be repleted via KCl. She will be placed on CIWA protocol for possible alcohol withdrawal. She will benefit from social work consult regarding chemical dependency counseling. Awaiting medication reconciliation In terms of her surgical issues, this will be addressed by orthopedic surgery. She had a syncopal event leading to a right radial wrist fracture. She will be made n.p.o. after midnight and be taken to the OR. Time Spent With Patient Time: Total time spent is greater than 50% in coordination of care (as documented) at patient's floor/unit and/or counseling patient: Total time spent with greater than 50% in coordination of care (as documented) at patient's floor/unit and/or counseling patient:: 50 - 70 minutes
[2022-01-05] MEDS ORDERED: POTASSIUM CHLORIDE 20 MEQ TABLET PO ONE (19:13)
[2022-01-05] MEDS ORDERED: ACETAMINOPHEN 325 MG TABLET PO PRN (20:17)
[2022-01-05] MEDS ORDERED: ONDANSETRON 4 MG/2 ML VIAL IV PRN (20:17)
[2022-01-05] MEDS: 0.9 % SODIUM CHLORIDE 10 ML SYRINGE IV SCH (21:00)
[2022-01-05] MEDS: oxyCODONE HCL 5 MG TABLET PO PRN (21:17)
[2022-01-05] MEDS: DOCUSATE SODIUM 100 MG CAPSULE PO SCH (21:18)
[2022-01-05] MEDS: SENNOSIDES 1 TABLET PO SCH (21:18)
[2022-01-05 21:53] LABS: Appearance,Urine HAZY (Clear); Bacteria,Urine FEW /hpf (0); Bilirubin,Urine Negative (Negative); Color,Urine YELLOW; Culture Indicated,Urine Yes; Glucose,Urine (UA) Negative (Negative); Ketones,Urine Negative (Negative); Leukocyte Esterase,Urine 25 /uL (Negative); Nitrate,Urine POS (Negative); Protein,Urine Negative (Negative); Specific Gravity,Urine 1.005 (1.000-1.035); Urine Blood Negative (Negative); Urine RBC < 1 /hpf (0-3); Urine Squamous Epithelial Cell 1 /hpf (0-4); Urine Transitional Epi Cells < 1 /hpf (0-2); Urine WBC 5 /hpf (0-4); Urobilinogen,Urine Negative
[2022-01-05] MEDS: HYDROmorphone 0.5 MG/0.5 ML SYRINGE IV PRN (22:06)
[2022-01-05] MEDS ORDERED: HYDROmorphone 0.5 MG/0.5 ML SYRINGE ONE (22:12)
[2022-01-05 23:03] LABS: Urea Nitrogen, Urine < 112 mg/dL
[2022-01-05 23:21] LABS: Creatinine,Urine Random 37.8 mg/dL (28.0-217.0)
[2022-01-06] MEDS: HYDROmorphone 0.5 MG/0.5 ML SYRINGE IV PRN ×2 (00:48→03:47)
[2022-01-06] MEDS: 0.9 % SODIUM CHLORIDE 10 ML SYRINGE IV SCH ×7 (00:49→22:00)
[2022-01-06] MEDS ORDERED: HYDROmorphone 0.5 MG/0.5 ML SYRINGE ONE ×2 (00:54→03:51)
[2022-01-06] MEDS ORDERED: HYDROmorphone 1 MG/ML SYRINGE IV ONE (01:13)
[2022-01-06] MEDS ORDERED: HYDROmorphone 1 MG/ML SYRINGE ONE (01:23)
[2022-01-06] MEDS: oxyCODONE HCL 5 MG TABLET PO PRN (05:21)
[2022-01-06 06:31] LABS: Basophils # (Auto) 0.05 K/mcL (0.00-0.30); Basophils % (Auto) 0.9 % (0.0-2.0); Eosinophils # (Auto) 0.11 K/mcL (0.00-0.70); Eosinophils % (Auto) 1.9 % (0.0-7.0); Hematocrit 26.4 % (34.1-44.9); Hemoglobin 9.3 g/dL (11.2-15.7); Lymphocytes # (Auto) 0.81 K/mcL (1.50-4.80); Lymphocytes % (Auto) 13.8 % (15.5-49.0); Mean Cell Volume 102.7 fL (80.0-100.0); Mean Corpuscular HGB Conc 35.2 g/dL (31.0-36.0); Monocytes # (Auto) 0.75 K/mcL (0.10-0.90); Monocytes % (Auto) 12.8 % (1.0-12.0); Neutrophils % (Auto) 70.6 % (38.0-78.0); Platelet Count 319 K/mcL (140-440); RBC 2.57 M/mcL (3.59-5.38); Red Cell Distribution Width 14.3 % (11.5-14.5); WBC 5.9 K/mcL (4.5-11.0)
[2022-01-06] MEDS: HYDROmorphone 1 MG/ML SYRINGE IV PRN (06:50)
--- NOTE | 2022-01-06 06:53 | Consultation ---
DATE OF CONSULTATION: 01/05/2022 REASON FOR CONSULTATION: Left distal radius fracture. CONSULTING PROVIDER: Dr. Mainor Benjamin at [facility]. HISTORY OF PRESENT ILLNESS: The patient is a 61-year-old female, who reports she had a syncopal episode and fell at her house earlier today. She hit her head. She was brought to the emergency department for further evaluation and treatment. She complains of head pain as well as left wrist pain. She was found to have a distal radius fracture, subsequently reduced and splinted, but given her lab abnormalities, she was admitted by the hospitalist to address her multiple electrolyte derangements. She denies any numbness, tingling in that extremity. PAST MEDICAL HISTORY: Significant for tobacco use, coronary artery disease, COPD, alcohol abuse. PAST SURGICAL HISTORY: She has had a hysterectomy, lumbar surgery. MEDICATIONS: Diclofenac, vitamin D, propranolol, duloxetine, amlodipine, alendronate, valacyclovir, statin, pain medications. ALLERGIES: NO KNOWN DRUG ALLERGIES. SOCIAL HISTORY: She resides here locally with her . She does drink on a regular basis per chart review, around 12 drinks per day. Also, smokes cigarettes on a regular basis. REVIEW OF SYSTEMS: Other than mentioned above, negative. PHYSICAL EXAMINATION: General: The patient is alert, oriented, interactive, and appropriate. She does have a laceration that has been closed on her forehead. She has some blood in her hair. She is not in acute distress. Vital Signs: She is afebrile with temperature of 97, heart rate has been low 100s. Blood pressure has been low as well, 95/85, saturating upper 90s-100% on room air. Extremities: She has a splint on her left arm. Her fingers are exposed. She does have sensation intact as well as able to wiggle each digit that is exposed. It is warm and well perfused. There is a small abrasion over the small finger dorsally as well. LABORATORY DATA: She has a chemistry, which demonstrates a glucose of 96, creatinine of 1. She has a troponin, which is 0.1. She has a CBC with a white count of 5.6, H and H 10.5 and 29.5 with a 325 platelet count. Her blood alcohol level is 0.25. Her liver enzymes are slightly elevated as well. She had a CT of her head and C-spine, which were negative for acute pathology. ASSESSMENT AND PLAN: This is a 61-year-old female who has alcohol abuse, smoker along with coronary artery disease, COPD with electrolyte abnormalities as well as a left distal radius fracture. I did discuss this with her today and discussed treatment options. Given the displaced nature of the fracture, I do think operative intervention was the best form of treatment. She does have multiple medical comorbidities, increasing her risk for postoperative complications as well as likely her bone was relatively soft, osteoporosis and osteoporotic, explaining itself to a bit of a higher risk of failure of the implant as well as fracture union or high risk for nonunion as well. I discussed what the surgery entails, the expectations of recovery postoperatively, and she does want to proceed with surgery. She was admitted by the hospitalist. Electrolytes being corrected and likely undergo operative intervention of her left distal radius fracture tomorrow. DLW:yusef Job ID: [id number] Doc ID: [id number] MD HA Gill
[2022-01-06 07:34] LABS: Blood Urea Nitrogen 3 mg/dL (8-23); Calcium 8.3 mg/dL (8.6-10.4); Carbon Dioxide 21 mmol/L (22-30); Chloride 96 mmol/L (96-108); Glomerular Filtration Rate 97; Glucose 102 mg/dL (70-105)
[2022-01-06] MEDS: DOCUSATE SODIUM 100 MG CAPSULE PO SCH ×2 (08:05→20:47)
[2022-01-06] MEDS: LORazepam 2 MG/ML VIAL IV PRN (08:15)
--- NOTE | 2022-01-06 09:10 | Internal Med Progress Note ---
SUBJECTIVE Subjective Patient information: Note initiated : 01/06/22 at 9:07 am Service Date, if different from initiated Date: [] Patient: Agueda Ornelas 61 y/o F admitted on 01/05/22 for fall. Chief Complaint: [EtOH abuse, fall] Principal diagnosis: Right radial wrist fracture, EtOH withdrawal Interval history: The patient's last drink was at noon yesterday. She is diaphoretic this morning. Her pain tolerance is significantly high as she drinks 12 beers a day and also takes 6 tablets of her [place] daily. Her Dilaudid was increased to 1 mg IV every 4 hours last night. This morning her CIWA score was 12 and she was given Ativan. Discussed the case with RN. Constitutional Vitals: Vital Signs Temp Pulse Resp BP Pulse Ox 97.3 F 98 H 18 118/78 99 01/06/22 08:01 01/06/22 08:01 01/06/22 03:48 01/06/22 08:01 01/06/22 08:01 Period Temp Pulse Resp BP Sys/Miranda Pulse Ox Last 24 Hr 97.0 F-98.3 F 94-113 88-120/60-85 94-100 Intake and Output 01/05/22 01/06/22 01/06/22 21:59 05:59 13:59 Intake Total 1186 240 Output Total 175 725 125 Balance 1011 -485 -125 Weight 55.021 kg Intake & Output: Intake & Output 01/05/22 01/06/22 01/06/22 21:59 05:59 13:59 Intake Total 1186 240 Output Total 175 725 125 Balance 1011 -485 -125 Weight 55.021 kg Intake: IV 1186 Sodium Chloride 0.9% 1,000 ml @ 1000 Wide Open IV BOLUS ONE Rx#: [id number] Potassium Chloride 40 Meq In 186 Dextrose 5% in Water 500 ml @ 130 mls/hr IV ONCE ONE Rx#: [id number] Oral 240 Output: Void Amount 175 725 125 Other: Meal sandwhich Percent of Meal Consumed 50% Feeding Ability Independent Urine Appearance Clear Clear Cloudy Urine Color Bright Yellow Bright Yellow Dark Yellow Urine Odor Normal Normal Head Head exam: Present atraumatic and normal inspection Eye Eye exam: Present normal appearance ENT ENT exam: Present mucous membranes moist, normal exam and normal external ear exam Neck Neck exam: Present normal inspection Respiratory Respiratory exam: Present normal respiratory exam Cardiovascular Cardiovascular exam: Present normal rate and rhythm GI/Abdominal GI/Abdominal exam: Present normal bowel sounds Back Exam Back exam: Present normal inspection Neurological Exam Neurological exam: Present alert and oriented X3 Skin Skin exam: Present intact and warm OBJ DATA Labs CBC & Chem 7: 01/06/22 05:12 01/06/22 05:12 Labs: Abnormal Lab Results 01/06/22 01/06/22 01/05/22 05:12 05:12 20:38 RBC 2.57 L Hgb 9.3 L Hct 26.4 L POC Hct MCV 102.7 H MCH 36.2 H Lymph % (Auto) 13.8 L [place] % (Auto) 12.8 H Lymph # (Auto) 0.81 L POC Sodium Sodium 131 L POC Potassium POC Chloride Carbon Dioxide 21 L POC Total CO2 POC BUN BUN 3 L Osmolality Calcium 8.3 L POC WB Ioniz Calcium AST ALT Alkaline Phosphatase Urine Appearance Hazy A Urine Nitrate Pos A Ur Leukocyte Esterase 25 A Urine WBC 5 H Urine Bacteria Few A Ethyl Alcohol POC Troponin I 01/05/22 01/05/22 01/05/22 20:38 15:37 15:37 RBC Hgb Hct POC Hct 31.0 L MCV MCH Lymph % (Auto) [place] % (Auto) Lymph # (Auto) POC Sodium 122 L Sodium POC Potassium 2.7 L* POC Chloride 87 L Carbon Dioxide POC Total CO2 20.0 L POC BUN < 3 L BUN Osmolality 305 H Calcium POC WB Ioniz Calcium 0.96 L AST ALT Alkaline Phosphatase Urine Appearance Urine Nitrate Ur Leukocyte Esterase Urine WBC Urine Bacteria Ethyl Alcohol POC Troponin I 0.01 L 01/05/22 01/05/22 01/05/22 15:27 15:27 15:27 RBC 2.91 L Hgb 10.5 L Hct 29.5 L POC Hct MCV 101.4 H MCH 36.1 H Lymph % (Auto) [place] % (Auto) 14.0 H Lymph # (Auto) 1.18 L POC Sodium Sodium POC Potassium POC Chloride Carbon Dioxide POC Total CO2 POC BUN BUN Osmolality Calcium POC WB Ioniz Calcium AST 82 H ALT 48 H Alkaline Phosphatase 192 H Urine Appearance Urine Nitrate Ur Leukocyte Esterase Urine WBC Urine Bacteria Ethyl Alcohol 0.252 H POC Troponin I Meds: Medications Acetaminophen (Acetaminophen 325 Mg Tablet) 650 mg PO Q6HP PRN; Protocol PRN Reason: Per Pain Protocol/Fever > 101 Last Admin: 01/06/22 05:17 Dose: 650 mg Documented by: Docusate Sodium (Docusate Sodium 100 Mg Capsule) 100 mg PO BID [facility] Last Admin: 01/06/22 08:05 Dose: Not Given Documented by: Enoxaparin Sodium (Enoxaparin 40 Mg/0.4 Ml Syringe) 40 mg SQ DAILY [facility] Hydromorphone HCl (Hydromorphone 1 Mg/Ml Syringe) 1 mg IV Q3HP PRN; Protocol PRN Reason: Per Pain Protocol Last Admin: 01/06/22 06:50 Dose: 1 mg Documented by: Lorazepam (Lorazepam 2 Mg/Ml Vial) 0 mg IV Q4HP PRN; Protocol PRN Reason: Alcohol Withdrawal Last Admin: 01/06/22 08:15 Dose: 2 mg Documented by: Ondansetron HCl (Ondansetron 4 Mg/2 Ml Vial) 4 mg IV Q6HP PRN PRN Reason: Nausea And Vomiting Oxycodone HCl (Oxycodone Hcl 5 Mg Tablet) 10 mg PO Q6HP PRN; Protocol PRN Reason: Per Pain Protocol Last Admin: 01/06/22 05:21 Dose: 10 mg Documented by: Senna (Sennosides 1 Tablet) 2 tab PO HS [facility] Last Admin: 01/05/22 21:18 Dose: 2 tab Documented by: Sodium Chloride (0.9 % Sodium Chloride 10 Ml Syringe) 10 ml IV Q8 [facility] Last Admin: 01/06/22 06:50 Dose: 10 ml Documented by: A/P Assessment and plan (1) Acute hyponatremia: Status: Acute (2) Acute hypokalemia: Status: Acute (3) Fracture of left wrist: Status: Acute (4) CAD (coronary artery disease): Status: Acute (5) Osteopenia: Status: Acute (6) Cigarette smoker: Status: Acute (7) Alcohol withdrawal: Status: Acute Narrative A/P Narrative: In terms of medical management, the patient's sodium is likely hypovolemic hyponatremic in etiology and she will be resuscitated with NS. Her potassium will be repleted via KCl. She will be placed on CIWA protocol for possible alcohol withdrawal. She will benefit from social work consult regarding chemical dependency counseling. Awaiting medication reconciliation In terms of her surgical issues, this will be addressed by orthopedic surgery. She had a syncopal event leading to a right radial wrist fracture. She will be made n.p.o. after midnight and be taken to the OR. 01/05: The patient will continue CIWA protocol. She has opioid tolerance, will continue high-dose IV Dilaudid for the time being. Her electrolytes have all improved. Her sodium is 131, and potassium is 3.7 today. In terms of her wrist fracture, she will be taken to the OR at noon by orthopedic surgery. Time Spent With Patient Time: Total time spent is greater than 50% in coordination of care (as documented) at patient's floor/unit and/or counseling patient: QUALITY Stroke Symptom Onset Unknown: No VTE Deep Vein Thrombosis/Pulmonary Embolism Present on Admission: No
[2022-01-06] MEDS: ENOXAPARIN 40 MG/0.4 ML SYRINGE SQ SCH (09:52)
[2022-01-06 10:05] LABS: INR 0.9 (0.9-1.1); Prothrombin Time 12.2 sec (11.9-14.5)
--- NOTE | 2022-01-06 11:47 | EKG ---
TS Minor Care Test Date: 2022-01-05 Pat Name: Agueda Ornelas Department: ED Room: Gender: Female Internet Project Manager: YUMIKO : 1960 Requested By: Arsenio Benjamin Order Number: [id number] Reading MD: Usha Soliz D.O. Measurements Intervals [place] Rate: 90 P: 55 AR: 138 QRS: -9 QRSD: 118 T: 28 QT: 392 QTc: 480 Interpretive Statements Sinus rhythm Ventricular premature complex Nonspecific intraventricular conduction delay Electronically Signed On 01-06-2022 11:47:23 PDT by Usha Soliz D.O. /store/[email or web address]/[id number]
[2022-01-06] MEDS ORDERED: ceFAZolin 2 GM in DEXTROSE 5% IN WATER 50 ML IV SCH (12:30)
[2022-01-06] MEDS ORDERED: PHENYLephrine 1 MG/10 ML SYRINGE (ANEST) ONE (12:33)
[2022-01-06] MEDS ORDERED: MIDAZOLAM 5 MG/5 ML VIAL ONE (12:33)
[2022-01-06] MEDS ORDERED: MAGNESIUM SULFATE 2 GM/50 ML BAG IV ONE (12:33)
[2022-01-06] MEDS ORDERED: LIDOCAINE HCL/PF 100 MG/5 ML SYRINGE IV ONE (12:33)
[2022-01-06] MEDS ORDERED: DEXAMETHASONE 10 MG/ML VIAL ONE (12:33)
[2022-01-06] MEDS ORDERED: GLYCOPYRROLATE 0.2 MG/ML VIAL IV ONE (12:33)
[2022-01-06] MEDS ORDERED: ONDANSETRON 4 MG/2 ML VIAL ONE (12:33)
[2022-01-06] MEDS ORDERED: ROPIVACAINE HCL/PF 20 ML VIAL IJ ONE (12:33)
[2022-01-06] MEDS ORDERED: PROPOFOL 200 MG/20 ML VIAL IV ONE (12:33)
[2022-01-06] MEDS ORDERED: IPRATROPIUM/ALBUTEROL 3 ML AMPUL.NEB NEB PRN (13:43)
[2022-01-06] MEDS ORDERED: METHOCARBAMOL 1,000 MG/10 ML VIAL IV PRN (13:53)
[2022-01-06] MEDS ORDERED: MEPERIDINE 25 MG/ML VIAL IV PRN (13:53)
[2022-01-06] MEDS ORDERED: fentaNYL 100 MCG/2 ML VIAL IV PRN (13:53)
[2022-01-06] MEDS ORDERED: ACETAMINOPHEN 1,000 MG/100 ML BAG IV ONE (13:53)
--- NOTE | 2022-01-06 14:09 | Brief Operative Note ---
Brief Operative Note Date of procedure: 01/06/22 Pre-op diagnosis: left comminuted distal radius fracture Post-op diagnosis: same Procedure: open reduction internal fixation left comminuted intra articular radius fracture Grafts/Implants: Yes Anesthesia: GETA and regional Findings: comminuted osteopenic bone Complications: none Surgeon: Lisa Mujica Specialty Cook: Won tEienne Estimated blood loss (cc): 5 Tourniquet Time (Minutes): 65 Specimens Removed/Pathology: none sent Condition: stable Disposition: PACU
--- NOTE | 2022-01-06 15:03 | XRay Report ---
HISTORY: Postop surgical reduction of fractured left radius FINDINGS: Metal plate has been secured to the volar surface of the radius. The comminuted intra-articular fracture has been realigned. The previously seen displaced and rotated fragment is now in good anatomic position. The impaction and foreshortening is also been corrected. IMPRESSION: Good alignment following open reduction internal fixation of the fractured distal radius Interpreted and Authenticated by: Reza Sampson 01/06/22
--- NOTE | 2022-01-06 15:14 | Operative Note ---
DATE OF OPERATION: 01/06/2022 PREOPERATIVE DIAGNOSIS: Left distal intra-articular comminuted radius fracture. POSTOPERATIVE DIAGNOSIS: Left distal intraarticular comminuted radius fracture. PROCEDURE PERFORMED: Open reduction and internal fixation of left comminuted intra-articular distal radius fracture. SURGEON: Lisa Mujica M.D. MARINE H[employer]ITAT RESOURCE SPECIALIST: Won Etienne PA-C. The PA's assistance was required for the safe and efficient completion of the entire case. This provider's expertise and technical skill were required throughout the case. The PA assisted with preoperative coordination, intraoperative retraction, wound closure, dressing and splint application, as well as postoperative documentation and care coordination. ANESTHESIA: General with peripheral nerve block. INTRAVENOUS FLUIDS: 500 mL of lactated Ringer's. ESTIMATED BLOOD LOSS: Minimal. TOURNIQUET TIME: 65 minutes at 200 mmHg. IMPLANTS: A narrow Arthrex 3-hole distal radial locking plate. INTRAOPERATIVE COMPLICATIONS: None apparent. PATHOLOGY/LAB: None. OPERATIVE FINDINGS: A comminuted and very osteoporotic bone distally. INDICATIONS FOR PROCEDURE: The patient is a 61-year-old female who had a ground-level fall while intoxicated, resulting in a comminuted fracture of her left radius. She was admitted for electrolyte abnormalities overnight, and subsequently I had discussed with her treatment options to include operative intervention. This would be my recommendation given the displaced nature of the fracture. After discussion with her, she wished to proceed in that fashion. DESCRIPTION OF PROCEDURE: Patient was met in the preoperative holding area where site was verified and marked with the patient's input. She was then taken back to the operating room where she underwent successful peripheral nerve block and started general anesthesia. The left upper extremity had a padded tourniquet placed about the proximal arm and then prepped and draped in the usual sterile fashion with ChloraPrep. Surgical timeout was performed to verify patient's identity, correct procedure being performed, and correct extremity being operated on. Everybody was in agreement. Esmarch was utilized to exsanguinate the extremity and tourniquet was inflated to 200 mmHg. I created an approximately 6 cm incision over the FCR tendon. The skin was sharply incised. Dissection was taken down to the FCR tendon. The sheath was incised and retracted ulnarly. The floor of the sheath was incised as well and retracted ulnarly. The space of Parona was entered and the pronator quadratus was identified. This was disrupted and had fragments that had protruded through the pronator quadratus. I did elevate the remainder of it off the radius and placed a blunt retractor deep to this to fully expose the fracture fragments. The hematoma was evacuated. The radial styloid fragment was rotated dorsally and had two different fragments composing of it as well as a central fragment off the volar cortex and then the main ulnar fragment. This was reduced with inline traction and in reducing the volar cortex in line it, the radial styloid fragment was reduced back to the volar cortex, and the radial border of the shaft with a dental pick holding it in place and subsequently placed a K-wire percutaneously through the radial styloid into the shaft to hold this in a reduced fashion. We placed an additional pin into the ulnar main fragmen to hold this in line with the volar cortex. I fitted a volar locking plate over top of this, restoring the tilt inclination and the articular margin. There was a small step sub millimeter at the articular margin and I felt this was acceptable and elected to keep this as is. I placed the 3.5 cortical screw in the oblong hole to compress the plate to the bone. Subsequently, we placed the radial styloid screws to hold this in an aligned position. I had to take the guide off and use the variable angle depth gauge given the distal placement of the plate as I could due to the comminution and soft bone. The screws were then subsequently drilled and placed and verified to be extraarticular on the appropriate 30-degree lateral view. The one radial styloid screw was at the cortical bone level. However, on all views it did not penetrate fully and I elected to leave this rather than change this out; given the fragility or the softness of the bone, I did not want to lose the reduction necessarily. At this point, we placed two locking screws in the shaft for three proximal screws. The wound was copiously irrigated. I did try to repair the pronator quadratus as much as possible over the plate; however, this was already disrupted and a bit difficult. Vancomycin powder was placed in the wound. The FCR sheath was closed with 3-0 Vicryl, subcutaneous with 3-0 Vicryl, and skin closed with nylon in running fashion. The arm was then cleaned and dried. We placed Xeroform, fluffs, Webril, and a volar resting splint. The patient awoke from anesthesia and was transferred to PACU in stable condition. POSTOPERATIVE PLAN: The patient will be admitted back to the floor and likely discharged home. From an orthopedic standpoint, okay to discharge nonweightbearing. Work on making a fist and flat hand. At her follow up in 2 weeks, we will place her into a cast for additional 2 weeks given the osteoporotic nature of the bone and the comminuted nature of the fracture. [id number]:lui Job ID: [id number] Doc ID: [id number] Lisa Mujica MD MTDD
[2022-01-06] MEDS ORDERED: VANCOMYCIN 1 GM VIAL TOPICAL SCH (15:15)
[2022-01-06] MEDS: SENNOSIDES 1 TABLET PO SCH (20:48)
[2022-01-06] MEDS: ATORVASTATIN 20 MG TABLET PO SCH (20:48)
[2022-01-07] MEDS: HYDROmorphone 1 MG/ML SYRINGE IV PRN ×4 (02:24→23:38)
[2022-01-07] MEDS: 0.9 % SODIUM CHLORIDE 10 ML SYRINGE IV SCH ×9 (02:25→23:38)
[2022-01-07] MEDS: HYDROCODONE/APAP 7.5/325MG TABLET PO PRN ×4 (03:17→16:56)
[2022-01-07] MEDS: LORazepam 2 MG/ML VIAL IV PRN ×4 (04:18→14:03)
[2022-01-07] MEDS: DULoxetine 30 MG CAPSULE PO SCH (08:27)
[2022-01-07] MEDS: ENOXAPARIN 40 MG/0.4 ML SYRINGE SQ SCH (08:27)
[2022-01-07] MEDS: PANTOPRAZOLE 40 MG TABLET PO SCH (08:27)
[2022-01-07] MEDS: buPROPion 150 MG TAB.XL.24H PO SCH (08:27)
[2022-01-07] MEDS: DOCUSATE SODIUM 100 MG CAPSULE PO SCH ×2 (08:27→21:25)
--- NOTE | 2022-01-07 10:20 | Internal Med Progress Note ---
SUBJECTIVE Subjective Patient information: Note initiated : 01/07/22 at 10:17 am Service Date, if different from initiated Date: [as above] Patient: Agueda Ornelas 61 y/o F admitted on 01/05/22 for fall. Chief Complaint: [EtOH abuse, wrist fracture] Principal diagnosis: Right radial wrist fracture, EtOH withdrawal Interval history: The patient was quite obtunded this morning. Discussed the case with the who was at the bedside. Discussed case with RN. The patient required 6 mg of Ativan overnight. Constitutional Vitals: Vital Signs Temp Pulse Resp BP Pulse Ox 96.9 F L 105 H 17 99/66 96 01/07/22 08:01 01/07/22 10:01 01/07/22 10:01 01/07/22 10:01 01/07/22 10:01 Period Temp Pulse Resp BP Sys/Miranda Pulse Ox Last 24 Hr 96.9 F-98.6 F 84-120 13-20 99-131/66-92 94-100 Intake and Output 01/06/22 01/07/22 01/07/22 21:59 05:59 13:59 Intake Total 1800 360 Output Total 405 550 Balance 1395 -190 Weight 55.384 kg Intake & Output: Intake & Output 01/06/22 01/07/22 01/07/22 21:59 05:59 13:59 Intake Total 1800 360 Output Total 405 550 Balance 1395 -190 Weight 55.384 kg Intake: IV 100 Oral 300 360 IV - Manual Only 1400 Output: Void Amount 400 550 Estimated Blood Loss 5 Other: Meal Dinner Percent of Meal Consumed 50% Feeding Ability Independent Urine Appearance Cloudy Clear Urine Color Straw Bright Yellow Urine Odor Normal Normal Head Head exam: Present atraumatic and normal inspection Eye Eye exam: Present normal appearance ENT ENT exam: Present mucous membranes moist, normal exam and normal external ear exam Neck Neck exam: Present normal inspection Respiratory Respiratory exam: Present normal respiratory exam Cardiovascular Cardiovascular exam: Present tachycardia GI/Abdominal GI/Abdominal exam: Present normal bowel sounds Back Exam Back exam: Present normal inspection Neurological Exam Neurological exam: Absent alert or oriented X3 Skin Skin exam: Present intact and warm OBJ DATA Labs CBC & Chem 7: 01/06/22 05:12 01/06/22 05:12 Labs: Abnormal Lab Results 01/06/22 01/06/22 01/05/22 05:12 05:12 20:38 RBC 2.57 L Hgb 9.3 L Hct 26.4 L POC Hct MCV 102.7 H MCH 36.2 H Lymph % (Auto) 13.8 L [place] % (Auto) 12.8 H Lymph # (Auto) 0.81 L POC Sodium Sodium 131 L POC Potassium POC Chloride Carbon Dioxide 21 L POC Total CO2 POC BUN BUN 3 L Osmolality Calcium 8.3 L POC WB Ioniz Calcium AST ALT Alkaline Phosphatase Urine Appearance Hazy A Urine Nitrate Pos A Ur Leukocyte Esterase 25 A Urine WBC 5 H Urine Bacteria Few A Ethyl Alcohol POC Troponin I 01/05/22 01/05/22 01/05/22 20:38 15:37 15:37 RBC Hgb Hct POC Hct 31.0 L MCV MCH Lymph % (Auto) [place] % (Auto) Lymph # (Auto) POC Sodium 122 L Sodium POC Potassium 2.7 L* POC Chloride 87 L Carbon Dioxide POC Total CO2 20.0 L POC BUN < 3 L BUN Osmolality 305 H Calcium POC WB Ioniz Calcium 0.96 L AST ALT Alkaline Phosphatase Urine Appearance Urine Nitrate Ur Leukocyte Esterase Urine WBC Urine Bacteria Ethyl Alcohol POC Troponin I 0.01 L 01/05/22 01/05/22 01/05/22 15:27 15:27 15:27 RBC 2.91 L Hgb 10.5 L Hct 29.5 L POC Hct MCV 101.4 H MCH 36.1 H Lymph % (Auto) [place] % (Auto) 14.0 H Lymph # (Auto) 1.18 L POC Sodium Sodium POC Potassium POC Chloride Carbon Dioxide POC Total CO2 POC BUN BUN Osmolality Calcium POC WB Ioniz Calcium AST 82 H ALT 48 H Alkaline Phosphatase 192 H Urine Appearance Urine Nitrate Ur Leukocyte Esterase Urine WBC Urine Bacteria Ethyl Alcohol 0.252 H POC Troponin I Meds: Medications Acetaminophen (Acetaminophen 325 Mg Tablet) 650 mg PO Q6HP PRN; Protocol PRN Reason: Per Pain Protocol/Fever > 101 Last Admin: 01/06/22 05:17 Dose: 650 mg Documented by: Hydrocodone Bitart/Acetaminophen (Hydrocodone/Apap 7.5/325mg Tablet) 1 - 2 tab PO Q4-6HP PRN; Protocol PRN Reason: Per Pain Protocol Last Admin: 01/07/22 08:26 Dose: 2 tab Documented by: Atorvastatin Calcium (Atorvastatin 20 Mg Tablet) 20 mg PO HS [facility] Last Admin: 01/06/22 20:48 Dose: 20 mg Documented by: Bupropion HCl (Bupropion 150 Mg Tab.Xl.24h) 150 mg PO DAILY [facility] Last Admin: 01/07/22 08:27 Dose: 150 mg Documented by: Docusate Sodium (Docusate Sodium 100 Mg Capsule) 100 mg PO BID [facility] Last Admin: 01/07/22 08:27 Dose: 100 mg Documented by: Duloxetine HCl (Duloxetine 30 Mg Capsule) 60 mg PO DAILY [facility] Last Admin: 01/07/22 08:27 Dose: 60 mg Documented by: Enoxaparin Sodium (Enoxaparin 40 Mg/0.4 Ml Syringe) 40 mg SQ DAILY [facility] Last Admin: 01/07/22 08:27 Dose: 40 mg Documented by: Hydromorphone HCl (Hydromorphone 1 Mg/Ml Syringe) 1 mg IV Q3HP PRN; Protocol PRN Reason: Per Pain Protocol Last Admin: 01/07/22 05:37 Dose: 1 mg Documented by: Lorazepam (Lorazepam 2 Mg/Ml Vial) 0 mg IV Q4HP PRN; Protocol PRN Reason: Alcohol Withdrawal Last Admin: 01/07/22 07:19 Dose: 3 mg Documented by: Ondansetron HCl (Ondansetron 4 Mg/2 Ml Vial) 4 mg IV Q6HP PRN PRN Reason: Nausea And Vomiting Pantoprazole Sodium (Pantoprazole 40 Mg Tablet) 40 mg PO QAM [facility] Last Admin: 01/07/22 08:27 Dose: 40 mg Documented by: Senna (Sennosides 1 Tablet) 2 tab PO HS [facility] Last Admin: 01/06/22 20:48 Dose: 2 tab Documented by: Sodium Chloride (0.9 % Sodium Chloride 10 Ml Syringe) 10 ml IV Q8 [facility] Last Admin: 01/07/22 08:28 Dose: 10 ml Documented by: A/P Assessment and plan (1) Acute hyponatremia: Status: Acute (2) Acute hypokalemia: Status: Acute (3) Fracture of left wrist: Status: Acute (4) CAD (coronary artery disease): Status: Acute (5) Osteopenia: Status: Acute (6) Cigarette smoker: Status: Acute (7) Alcohol withdrawal: Status: Acute Narrative A/P Narrative: In terms of medical management, the patient's sodium is likely hypovolemic hyponatremic in etiology and she will be resuscitated with NS. Her potassium will be repleted via KCl. She will be placed on CIWA protocol for possible alcohol withdrawal. She will benefit from social work consult regarding chemical dependency counseling. Awaiting medication reconciliation In terms of her surgical issues, this will be addressed by orthopedic surgery. She had a syncopal event leading to a right radial wrist fracture. She will be made n.p.o. after midnight and be taken to the OR. 01/06: The patient will continue CIWA protocol. She has opioid tolerance, will continue high-dose IV Dilaudid for the time being. Her electrolytes have all improved. Her sodium is 131, and potassium is 3.7 today. In terms of her wrist fracture, she will be taken to the OR at noon by orthopedic surgery. 01/07: The patient is 48 hours from her last drink, and the next 24 hours we will have to monitor her closely as her withdrawal will reach peak. Continue CIWA protocol. If the patient is consistently scoring high CIWA scores greater than 20 we will consider Ativan infusion or IV phenobarbital. Time Spent With Patient Time: Total time spent is greater than 50% in coordination of care (as documented) at patient's floor/unit and/or counseling patient: Total time spent with greater than 50% in coordination of care (as documented) at patient's floor/unit and/or counseling patient:: 25 - 35 minutes Critical Care Time: Yes Total Critical Care Time: 30 QUALITY Stroke Symptom Onset Unknown: No VTE Deep Vein Thrombosis/Pulmonary Embolism Present on Admission: No
[2022-01-07 10:59] LABS: ALT/SGPT 30 U/L (<40); AST/SGOT 50 U/L (<32); Albumin 3.2 gm/dL (3.2-5.2); Albumin/Globulin Ratio 1.6 (1.0-2.3); Alkaline Phosphatase 153 U/L (39-117); Bilirubin,Direct < 0.2 mg/dL (0-0.3); Bilirubin,Total 0.3 mg/dL (0.1-1.0); Blood Urea Nitrogen 3 mg/dL (8-23); Calcium 8.3 mg/dL (8.6-10.4); Carbon Dioxide 23 mmol/L (22-30); Chloride 94 mmol/L (96-108); Glomerular Filtration Rate 97; Glucose 137 mg/dL (70-105); Lactate Dehydrogenase 275 U/L (135-225); Triglycerides 29 mg/dL (<150); Uric Acid 3.1 mg/dL (2.5-8.0)
[2022-01-07] MEDS ORDERED: FLEETS ADULT ENEMA PR PRN (11:55)
[2022-01-07] MEDS ORDERED: MAGNESIUM HYDROXIDE 30 ML ORAL.SUSP PO PRN (11:55)
[2022-01-07] MEDS ORDERED: BISACODYL 10 MG SUPP.RECT PR PRN (11:55)
[2022-01-07] MEDS: cefTRIAXone 1 GM VIAL IV SCH (12:09)
[2022-01-07] MEDS ORDERED: DOCUSATE SODIUM 100 MG CAPSULE PO SCH (21:00)
[2022-01-07] MEDS: ATORVASTATIN 20 MG TABLET PO SCH (21:24)
[2022-01-07] MEDS: SENNOSIDES 1 TABLET PO SCH (21:25)
[2022-01-08] MEDS: HYDROmorphone 1 MG/ML SYRINGE IV PRN ×6 (03:10→22:21)
[2022-01-08] MEDS: 0.9 % SODIUM CHLORIDE 10 ML SYRINGE IV SCH ×5 (03:13→20:03)
[2022-01-08] MEDS: LORazepam 2 MG/ML VIAL IV PRN (03:38)
[2022-01-08 06:49] LABS: ALT/SGPT 27 U/L (<40); AST/SGOT 48 U/L (<32); Albumin/Globulin Ratio 1.2 (1.0-2.3); Alkaline Phosphatase 164 U/L (39-117); Bilirubin,Direct < 0.2 mg/dL (0-0.3); Bilirubin,Total 0.3 mg/dL (0.1-1.0); Blood Urea Nitrogen 3 mg/dL (8-23); Calcium 8.9 mg/dL (8.6-10.4); Carbon Dioxide 23 mmol/L (22-30); Chloride 96 mmol/L (96-108); Globulin 2.6 gm/dL (2.2-3.7); Glomerular Filtration Rate 111; Glucose 108 mg/dL (70-105); Lactate Dehydrogenase 281 U/L (135-225); Phosphorous 2.7 mg/dL (2.5-4.5); Triglycerides 50 mg/dL (<150); Uric Acid 2.8 mg/dL (2.5-8.0)
[2022-01-08] MEDS: DOCUSATE SODIUM 100 MG CAPSULE PO SCH ×2 (07:36→19:42)
[2022-01-08] MEDS: HYDROCODONE/APAP 7.5/325MG TABLET PO PRN ×3 (07:55→19:26)
[2022-01-08] MEDS: cefTRIAXone 1 GM VIAL IV SCH (08:55)
[2022-01-08] MEDS: ENOXAPARIN 40 MG/0.4 ML SYRINGE SQ SCH (08:55)
[2022-01-08] MEDS: PANTOPRAZOLE 40 MG TABLET PO SCH (08:55)
[2022-01-08] MEDS: buPROPion 150 MG TAB.XL.24H PO SCH (08:55)
[2022-01-08] MEDS: DULoxetine 30 MG CAPSULE PO SCH (10:11)
--- NOTE | 2022-01-08 11:12 | Internal Med Progress Note ---
SUBJECTIVE Subjective Patient information: Note initiated : 01/08/22 at 11:10 am Service Date, if different from initiated Date: [as above] Patient: Agueda Ornelas 61 y/o F admitted on 01/05/22 for fall. Chief Complaint: [LOC] Principal diagnosis: Right radial wrist fracture, EtOH withdrawal Interval history: The patient is looking much better in comparison to yesterday. She was alert and fully conversant. Per discussion with the RN, the patient will require 1 mg of Ativan overnight. She did briefly work with physical therapy for 15 minutes this morning. She was unsteady on her feet. Constitutional Vitals: Vital Signs Temp Pulse Resp BP Pulse Ox 97.7 F 112 H 20 132/95 98 01/08/22 04:00 01/08/22 06:00 01/08/22 07:59 01/08/22 07:59 01/08/22 07:59 Period Temp Pulse Resp BP Sys/Miranda Pulse Ox Last 24 Hr 97.2 F-97.7 F 98-112 - 100-132/72-95 92-98 Intake and Output 01/07/22 01/08/22 01/08/22 21:59 05:59 13:59 Intake Total 480 240 Output Total 425 300 125 Balance 55 -60 -125 Weight 55.701 kg Intake & Output: Intake & Output 01/07/22 01/08/22 01/08/22 21:59 05:59 13:59 Intake Total 480 240 Output Total 425 300 125 Balance 55 -60 -125 Weight 55.701 kg Intake: Oral 480 240 Output: Void Amount 425 200 Urine/Stool Mix 100 125 Other: Meal [place] Juice Yoghurt Percent of Meal Consumed 25% 100% Feeding Ability Assist with Tray Set Up Needs Supervision Urine Appearance Clear Cloudy Urine Color Bright Yellow Dark Yellow Stool Size Large Small Stool Color Brown Brown Stool Consistency Leann Liquid Liquid Loose # Voids 1 # Bowel Movements 1 Head Head exam: Present atraumatic and normal inspection Eye Eye exam: Present normal appearance ENT ENT exam: Present mucous membranes moist, normal exam and normal external ear exam Neck Neck exam: Present normal inspection Respiratory Respiratory exam: Present normal respiratory exam Cardiovascular Cardiovascular exam: Present normal rate and rhythm GI/Abdominal GI/Abdominal exam: Present normal bowel sounds Back Exam Back exam: Present normal inspection Neurological Exam Neurological exam: Present alert and oriented X3 Skin Skin exam: Present intact and warm OBJ DATA Labs CBC & Chem 7: 01/06/22 05:12 01/08/22 05:18 Labs: Abnormal Lab Results 01/08/22 01/07/22 01/06/22 05:18 10:09 05:12 RBC Hgb Hct POC Hct MCV MCH Lymph % (Auto) [place] % (Auto) Lymph # (Auto) POC Sodium Sodium 130 L 129 L 131 L POC Potassium POC Chloride Chloride 94 L Carbon Dioxide 21 L POC Total CO2 POC BUN BUN 3 L 3 L 3 L Creatinine 0.4 L Glucose 108 H 137 H Osmolality Calcium 8.3 L 8.3 L POC WB Ioniz Calcium Phosphorus 2.0 L GGT 586 H 578 H AST 48 H 50 H ALT Alkaline Phosphatase 164 H 153 H Lactate Dehydrogenase 281 H 275 H Total Protein 5.6 L 5.2 L Albumin 3.0 L Globulin 2.0 L Urine Appearance Urine Nitrate Ur Leukocyte Esterase Urine WBC Urine Bacteria Ethyl Alcohol POC Troponin I 01/06/22 01/05/22 01/05/22 05:12 20:38 20:38 RBC 2.57 L Hgb 9.3 L Hct 26.4 L POC Hct MCV 102.7 H MCH 36.2 H Lymph % (Auto) 13.8 L [place] % (Auto) 12.8 H Lymph # (Auto) 0.81 L POC Sodium Sodium POC Potassium POC Chloride Chloride Carbon Dioxide POC Total CO2 POC BUN BUN Creatinine Glucose Osmolality 305 H Calcium POC WB Ioniz Calcium Phosphorus GGT AST ALT Alkaline Phosphatase Lactate Dehydrogenase Total Protein Albumin Globulin Urine Appearance Hazy A Urine Nitrate Pos A Ur Leukocyte Esterase 25 A Urine WBC 5 H Urine Bacteria Few A Ethyl Alcohol POC Troponin I 01/05/22 01/05/22 01/05/22 15:37 15:37 15:27 RBC Hgb Hct POC Hct 31.0 L MCV MCH Lymph % (Auto) [place] % (Auto) Lymph # (Auto) POC Sodium 122 L Sodium POC Potassium 2.7 L* POC Chloride 87 L Chloride Carbon Dioxide POC Total CO2 20.0 L POC BUN < 3 L BUN Creatinine Glucose Osmolality Calcium POC WB Ioniz Calcium 0.96 L Phosphorus GGT AST ALT Alkaline Phosphatase Lactate Dehydrogenase Total Protein Albumin Globulin Urine Appearance Urine Nitrate Ur Leukocyte Esterase Urine WBC Urine Bacteria Ethyl Alcohol 0.252 H POC Troponin I 0.01 L 01/05/22 01/05/22 15:27 15:27 RBC 2.91 L Hgb 10.5 L Hct 29.5 L POC Hct MCV 101.4 H MCH 36.1 H Lymph % (Auto) [place] % (Auto) 14.0 H Lymph # (Auto) 1.18 L POC Sodium Sodium POC Potassium POC Chloride Chloride Carbon Dioxide POC Total CO2 POC BUN BUN Creatinine Glucose Osmolality Calcium POC WB Ioniz Calcium Phosphorus GGT AST 82 H ALT 48 H Alkaline Phosphatase 192 H Lactate Dehydrogenase Total Protein Albumin Globulin Urine Appearance Urine Nitrate Ur Leukocyte Esterase Urine WBC Urine Bacteria Ethyl Alcohol POC Troponin I Meds: Medications Acetaminophen (Acetaminophen 325 Mg Tablet) 650 mg PO Q6HP PRN; Protocol PRN Reason: Per Pain Protocol/Fever > 101 Last Admin: 01/06/22 05:17 Dose: 650 mg Documented by: Hydrocodone Bitart/Acetaminophen (Hydrocodone/Apap 7.5/325mg Tablet) 1 - 2 tab PO Q4-6HP PRN; Protocol PRN Reason: Per Pain Protocol Last Admin: 01/08/22 07:55 Dose: 2 tab Documented by: Atorvastatin Calcium (Atorvastatin 20 Mg Tablet) 20 mg PO HS [facility] [place] Last Admin: 01/07/22 21:24 Dose: 20 mg Documented by: Bisacodyl (Bisacodyl 10 Mg Supp.Rect) 10 mg [place] Q2-3DAYS PRN PRN Reason: Constipation Bupropion HCl (Bupropion 150 Mg Tab.Xl.24h) 150 mg PO DAILY [facility] [place] Last Admin: 01/08/22 08:55 Dose: 150 mg Documented by: Ceftriaxone Sodium (Ceftriaxone 1 Gm Vial) 1 gm IV DAILY [facility] [place]; Protocol Last Admin: 01/08/22 08:55 Dose: 1 gm Documented by: Docusate Sodium (Docusate Sodium 100 Mg Capsule) 100 mg PO BID [facility] [place] Last Admin: 01/08/22 07:36 Dose: Not Given Documented by: Duloxetine HCl (Duloxetine 30 Mg Capsule) 60 mg PO DAILY [facility] [place] Last Admin: 01/08/22 10:11 Dose: 60 mg Documented by: Enoxaparin Sodium (Enoxaparin 40 Mg/0.4 Ml Syringe) 40 mg SQ DAILY [facility] [place] Last Admin: 01/08/22 08:55 Dose: 40 mg Documented by: Hydromorphone HCl (Hydromorphone 1 Mg/Ml Syringe) 1 mg IV Q3HP PRN; Protocol PRN Reason: Per Pain Protocol Last Admin: 01/08/22 10:43 Dose: 1 mg Documented by: Lorazepam (Lorazepam 2 Mg/Ml Vial) 0 mg IV Q4HP PRN; Protocol PRN Reason: Alcohol Withdrawal Last Admin: 01/08/22 03:38 Dose: 1 mg Documented by: Magnesium Hydroxide (Magnesium Hydroxide 30 Ml Oral.Susp) 30 ml PO DAILYP PRN PRN Reason: Constipation Last Admin: 01/07/22 12:10 Dose: 30 ml Documented by: Ondansetron HCl (Ondansetron 4 Mg/2 Ml Vial) 4 mg IV Q6HP PRN PRN Reason: Nausea And Vomiting Pantoprazole Sodium (Pantoprazole 40 Mg Tablet) [facility] [place] Admin: 01/08/22 08:55 Dose: 40 mg Documented by: Senna (Sennosides 1 Tablet) 2 tab PO HS [facility] [place] Last Admin: 01/07/22 21:25 Dose: 2 tab Documented by: Sodium Biphosphate/Sodium Phosphate (Fleets Adult Enema) 1 dose [place] Q3-4DAYS PRN PRN Reason: Constipation Sodium Chloride (0.9 % Sodium Chloride 10 Ml Syringe) 10 ml IV Q8 [facility] [place] Last Admin: 01/08/22 05:56 Dose: Not Given Documented by: A/P Assessment and plan (1) Acute hyponatremia: Status: Acute (2) Acute hypokalemia: Status: Acute (3) Fracture of left wrist: Status: Acute (4) CAD (coronary artery disease): Status: Acute (5) Osteopenia: Status: Acute (6) Cigarette smoker: Status: Acute (7) Alcohol withdrawal: Status: Acute Narrative A/P Narrative: In terms of medical management, the patient's sodium is likely hypovolemic hyponatremic in etiology and she will be resuscitated with NS. Her potassium will be repleted via KCl. She will be placed on CIWA protocol for possible alc ohol withdrawal. She will benefit from social work consult regarding chemical dependency counseling. Awaiting medication reconciliation In terms of her surgical issues, this will be addressed by orthopedic surgery. She had a syncopal event leading to a right radial wrist fracture. She will be made n.p.o. after midnight and be taken to the OR. 01/06: The patient will continue CIWA protocol. She has opioid tolerance, will continue high-dose IV Dilaudid for the time being. Her electrolytes have all improved. Her sodium is 131, and potassium is 3.7 today. In terms of her wrist fracture, she will be taken to the OR at noon by orthopedic surgery. 01/07: The patient is 48 hours from her last drink, and the next 24 hours we will have to monitor her closely as her withdrawal will reach peak. Continue CIWA protocol. If the patient is consistently scoring high CIWA scores greater than 20 we will consider Ativan infusion or IV phenobarbital. 01/08: The patient is doing much better today. We will continue CIWA for the next 24 hours although her scores are minimal. Continue to work with PT/OT. She will [facility] facility [facility]. We may consider transferring her out of the ICU to the floor Time Spent With Patient Time: Total time spent is greater than 50% in coordination of care (as documented) at patient's floor/unit and/or counseling patient: Total time spent with greater than 50% in coordination of care (as documented) at patient's floor/unit and/or counseling patient:: 25 - 35 minutes QUALITY Stroke Symptom Onset Unknown: No VTE Deep Vein Thrombosis/Pulmonary Embolism Present on Admission: No
[2022-01-08] MEDS: SENNOSIDES 1 TABLET PO SCH (19:42)
[2022-01-08] MEDS: ATORVASTATIN 20 MG TABLET PO SCH (20:03)
[2022-01-09] MEDS: HYDROCODONE/APAP 7.5/325MG TABLET PO PRN ×5 (02:02→19:55)
[2022-01-09] MEDS: HYDROmorphone 1 MG/ML SYRINGE IV PRN ×2 (04:52→11:32)
[2022-01-09] MEDS: 0.9 % SODIUM CHLORIDE 10 ML SYRINGE IV SCH ×4 (05:09→21:16)
[2022-01-09 06:19] LABS: ALT/SGPT 24 U/L (<40); AST/SGOT 38 U/L (<32); Albumin 3.1 gm/dL (3.2-5.2); Albumin/Globulin Ratio 1.2 (1.0-2.3); Alkaline Phosphatase 163 U/L (39-117); Bilirubin,Direct < 0.2 mg/dL (0-0.3); Bilirubin,Total 0.3 mg/dL (0.1-1.0); Blood Urea Nitrogen 3 mg/dL (8-23); Calcium 8.9 mg/dL (8.6-10.4); Carbon Dioxide 25 mmol/L (22-30); Chloride 95 mmol/L (96-108); Globulin 2.5 gm/dL (2.2-3.7); Glomerular Filtration Rate 111; Glucose 88 mg/dL (70-105); Lactate Dehydrogenase 257 U/L (135-225); Phosphorous 4.3 mg/dL (2.5-4.5); Triglycerides 54 mg/dL (<150); Uric Acid 3.1 mg/dL (2.5-8.0)
[2022-01-09] MEDS: PANTOPRAZOLE 40 MG TABLET PO SCH ×2 (06:43→07:40)
[2022-01-09] MEDS: DULoxetine 30 MG CAPSULE PO SCH (07:19)
[2022-01-09] MEDS: ENOXAPARIN 40 MG/0.4 ML SYRINGE SQ SCH (07:20)
[2022-01-09] MEDS: cefTRIAXone 1 GM VIAL IV SCH (07:20)
[2022-01-09] MEDS: DOCUSATE SODIUM 100 MG CAPSULE PO SCH ×2 (07:20→19:50)
[2022-01-09] MEDS: buPROPion 150 MG TAB.XL.24H PO SCH (07:21)
[2022-01-09] MEDS ORDERED: FLUCONAZOLE 150 MG TABLET PO ONE (10:10)
--- NOTE | 2022-01-09 10:24 | Internal Med Progress Note ---
SUBJECTIVE Subjective Patient information: Note initiated : 01/09/22 at 10:23 am Service Date, if different from initiated Date: [as above] Patient: Agueda Ornelas 61 y/o F admitted on 01/05/22 for fall. Chief Complaint: [LOC] Principal diagnosis: Right radial wrist fracture, EtOH withdrawal Interval history: The patient is doing really well. Discussed the case with RN. The patient had no active complaints or concerns. We will continue to work on disposition. Constitutional Vitals: Vital Signs Temp Pulse Resp BP Pulse Ox 98.4 F 102 H 17 129/79 97 01/09/22 07:19 01/08/22 16:01 01/09/22 07:19 01/09/22 07:19 01/09/22 07:19 Period Temp Pulse Resp BP Sys/Miranda Pulse Ox Last 24 Hr 97.4 F-98.9 F 102 13-25 115-132/73-91 91-97 Intake and Output 01/08/22 01/09/22 01/09/22 21:59 05:59 13:59 Intake Total 640 Output Total 125 200 600 Balance 515 -200 -600 Weight 57.017 kg Intake & Output: Intake & Output 01/08/22 01/09/22 01/09/22 21:59 05:59 13:59 Intake Total 640 Output Total 125 200 600 Balance 515 -200 -600 Weight 57.017 kg Intake: Oral 640 Output: Void Amount 125 200 600 Other: Meal Lunch Percent of Meal Consumed 50% Urine Appearance Clear Clear Urine Color Dark Yellow Dark Yellow Stool Size Small Stool Color Brown Yellow Stool Consistency Liquid Watery Loose # of times incontinent of 2 Bowels Head Head exam: Present atraumatic and normal inspection Eye Eye exam: Present normal appearance ENT ENT exam: Present mucous membranes moist, normal exam and normal external ear e xam Neck Neck exam: Present normal inspection Respiratory Respiratory exam: Present normal respiratory exam Cardiovascular Cardiovascular exam: Present normal rate and rhythm GI/Abdominal GI/Abdominal exam: Present normal bowel sounds Back Exam Back exam: Present normal inspection Neurological Exam Neurological exam: Present alert and oriented X3 Skin Skin exam: Present intact and warm OBJ DATA Labs CBC & Chem 7: 01/06/22 05:12 01/09/22 05:08 Labs: Abnormal Lab Results 01/09/22 01/08/22 01/07/22 05:08 05:18 10:09 Sodium 130 L 129 L Chloride 95 L 94 L BUN 3 L 3 L 3 L Creatinine 0.4 L 0.4 L Glucose 108 H 137 H Calcium 8.3 L Phosphorus 2.0 L Magnesium 1.5 L GGT 536 H 586 H 578 H AST 38 H 48 H 50 H Alkaline Phosphatase 163 H 164 H 153 H Lactate Dehydrogenase 257 H 281 H 275 H Total Protein 5.6 L 5.6 L 5.2 L Albumin 3.1 L 3.0 L Globulin 2.0 L Meds: Medications Acetaminophen (Acetaminophen 325 Mg Tablet) 650 mg PO Q6HP PRN; Protocol PRN Reason: Per Pain Protocol/Fever > 101 Last Admin: 01/06/22 05:17 Dose: 650 mg Documented by: Hydrocodone Bitart/Acetaminophen (Hydrocodone/Apap 7.5/325mg Tablet) 1 - 2 tab PO Q4-6HP PRN; Protocol PRN Reason: Per Pain Protocol Last Admin: 01/09/22 06:43 Dose: 1 tab Documented by: Atorvastatin Calcium (Atorvastatin 20 Mg Tablet) 20 mg PO [facility] Last Admin: 01/08/22 20:03 Dose: 20 mg Documented by: Bisacodyl (Bisacodyl 10 Mg Supp.Rect) 10 mg MS Q2-3DAYS PRN PRN Reason: Constipation Bupropion HCl (Bupropion 150 Mg Tab.Xl.24h) 150 mg PO DAILY [facility] TO [facility] Last Admin: 01/09/22 07:21 Dose: 150 mg Documented by: Ceftriaxone Sodium (Ceftriaxone 1 Gm Vial) 1 gm IV DAILY [facility]END[facility] S[facility] TO [facility]; Protocol Last Admin: 01/09/22 07:20 Dose: 1 gm Documented by: Docusate Sodium (Docusate Sodium 100 Mg Capsule) 100 mg PO BID [facility] TO [facility] Last Admin: 01/09/22 07:20 Dose: Not Given Documented by: Duloxetine HCl (Duloxetine 30 Mg Capsule) 60 mg PO DAILY [facility] Last Admin: 01/09/22 07:19 Dose: 60 mg Documented by: Enoxaparin Sodium (Enoxaparin 40 Mg/0.4 Ml Syringe) 40 mg SQ DAILY [facility]END[facility] TO [facility] Last Admin: 01/09/22 07:20 Dose: 40 mg Documented by: Hydromorphone HCl (Hydromorphone 1 Mg/Ml Syringe) 1 mg IV Q3HP PRN; Protocol PRN Reason: Per Pain Protocol Last Admin: 01/09/22 04:52 Dose: 1 mg Documented by: Lorazepam (Lorazepam 2 Mg/Ml Vial) 0 mg IV Q4HP PRN; Protocol PRN Reason: Alcohol Withdrawal Last Admin: 01/08/22 03:38 Dose: 1 mg Documented by: Magnesium Hydroxide (Magnesium Hydroxide 30 Ml Oral.Susp) 30 ml PO DAILYP PRN PRN Reason: Constipation Last Admin: 01/07/22 12:10 Dose: 30 ml Documented by: Ondansetron HCl (Ondansetron 4 Mg/2 Ml Vial) 4 mg IV Q6HP PRN PRN Reason: Nausea And Vomiting Pantoprazole Sodium (Pantoprazole 40 Mg Tablet) 40 mg PO QAM [facility] Last Admin: 01/09/22 07:40 Dose: Not Given Documented by: Senna (Sennosides 1 Tablet) 2 tab PO HS [facility]END[facility] S[facility] TO [facility] Last Admin: 01/08/22 19:42 Dose: Not Given Documented by: Sodium Biphosphate/Sodium Phosphate (Fleets Adult Enema) 1 dose MS Q3-4DAYS PRN PRN Reason: Constipation Sodium Chloride (0.9 % Sodium Chloride 10 Ml Syringe) 10 ml IV Q8 PENDING SALE TO [facility] Last Admin: 01/09/22 07:41 Dose: 10 ml Documented by: A/P Assessment and plan (1) Acute hyponatremia: Status: Acute (2) Acute hypokalemia: Status: Acute (3) Fracture of left wrist: Status: Acute (4) CAD (coronary artery disease): Status: Acute (5) Osteopenia: Status: Acute (6) Cigarette smoker: Status: Acute (7) Alcohol withdrawal: Status: Acute Narrative A/P Narrative: In terms of medical management, the patient's sodium is likely hypovolemic hyponatremic in etiology and she will be resuscitated with NS. Her potassium will be repleted via KCl. She will be placed on CIWA protocol for possible alcohol withdrawal. She will benefit from social work consult regarding chemical dependency counseling. Awaiting medication reconciliation In terms of her surgical issues, this will be addressed by orthopedic surgery. She had a syncopal event leading to a right radial wrist fracture. She will be made n.p.o. after midnight and be taken to the OR. 01/06: The patient will continue CIWA protocol. She has opioid tolerance, will continue high-dose IV Dilaudid for the time being. Her electrolytes have all improved. Her sodium is 131, and potassium is 3.7 today. In terms of her wrist fracture, she will be taken to the OR at noon by orthopedic surgery. 01/07: The patient is 48 hours from her last drink, and the next 24 hours we will have to monitor her closely as her withdrawal will reach peak. Continue CIWA protocol. If the patient is consistently scoring high CIWA scores greater than 20 we will consider Ativan infusion or IV phenobarbital. 01/08: The patient is doing much better today. We will continue CIWA for the next 24 hours although her scores are minimal. Continue to work with PT/OT. She will likely be discharged to [facility] tomorrow. We may consider transferring her out of the ICU to the floor 01/09: We will discontinue CIWA protocol today. The patient will be transferred to [facility]. Discussed disposition during multidisciplinary rounds, and she will require preauthorization to [facility] facility. A referral will be made today. Time Spent With Patient Time: Total time spent is greater than 50% in coordination of care (as documented) at patient's floor/unit and/or counseling patient: Total time spent with greater than 50% in coordination of care (as documented) at patient's floor/unit and/or counseling patient:: 25 - 35 minutes QUALITY Stroke Symptom Onset Unknown: No VTE Deep Vein Thrombosis/Pulmonary Embolism Present on Admission: No
[2022-01-09] MEDS ORDERED: MAGNESIUM SULFATE 2 GM/50 ML BAG IV SCH (11:45)
[2022-01-09] MEDS: SENNOSIDES 1 TABLET PO SCH (19:50)
[2022-01-09] MEDS: ATORVASTATIN 20 MG TABLET PO SCH (19:57)
[2022-01-10] MEDS: HYDROCODONE/APAP 7.5/325MG TABLET PO PRN ×3 (00:04→10:33)
[2022-01-10] MEDS: 0.9 % SODIUM CHLORIDE 10 ML SYRINGE IV SCH ×2 (05:18→07:38)
[2022-01-10] MEDS: PANTOPRAZOLE 40 MG TABLET PO SCH ×2 (06:17→07:52)
[2022-01-10 07:06] LABS: ALT/SGPT 21 U/L (<40); AST/SGOT 36 U/L (<32); Albumin/Globulin Ratio 1.2 (1.0-2.3); Alkaline Phosphatase 161 U/L (39-117); Bilirubin,Direct < 0.2 mg/dL (0-0.3); Bilirubin,Total 0.2 mg/dL (0.1-1.0); Blood Urea Nitrogen 3 mg/dL (8-23); Calcium 8.9 mg/dL (8.6-10.4); Carbon Dioxide 25 mmol/L (22-30); Chloride 97 mmol/L (96-108); Globulin 2.6 gm/dL (2.2-3.7); Glomerular Filtration Rate 111; Glucose 86 mg/dL (70-105); Lactate Dehydrogenase 263 U/L (135-225); Phosphorous 4.3 mg/dL (2.5-4.5); Triglycerides 60 mg/dL (<150); Uric Acid 3.1 mg/dL (2.5-8.0)
[2022-01-10] MEDS: DOCUSATE SODIUM 100 MG CAPSULE PO SCH (07:32)
[2022-01-10] MEDS: buPROPion 150 MG TAB.XL.24H PO SCH (07:37)
[2022-01-10] MEDS: DULoxetine 30 MG CAPSULE PO SCH (07:37)
[2022-01-10] MEDS: cefTRIAXone 1 GM VIAL IV SCH (07:37)
[2022-01-10] MEDS: ENOXAPARIN 40 MG/0.4 ML SYRINGE SQ SCH (07:37)
--- NOTE | 2022-01-10 11:01 | Discharge Summary ---
Discharge Provider Provider Patient information: Note initiated : 01/10/22 at 11:01 am Service Date, if different from initiated Date: [as above ] Patient: Agueda Ornelas 61 y/o F admitted on 01/05/22 for fall. Chief Complaint: [] Date of admission: 01/05/22 20:11 Discharge date: 01/10/22 Primary care physician: NANCY Menjivar Consults: 01/05/22 17:36 Consult to Physician [CONS] Stat Comment: Consulting Provider: Ct Canales Reason For Exam: Physician to Consult Consult to Physician [CONS] Stat Comment: Consulting Provider: Lisa Mujica Reason For Exam: Physician to Consult Discharging clinician: Ct Canales Discharge Meds Discharge Medications Home Medications cholecalciferol (vitamin D3) 50 mcg (2,000 unit) capsule 2,000 unit PO .MWF cap 11/29/20 [History Confirmed 01/05/22 Last Taken 01/04/22 16:00] pantoprazole 40 mg tablet,delayed release 40 mg PO QAM #90 tab 05/03/21 [Rx Confirmed 01/05/22 Last Taken 01/05/22 09:00] duloxetine 60 mg capsule,delayed release See Rx Instructions .ROUTE .COMPLEX #90 capsule 05/10/21 [Rx Confirmed 01/05/22 Last Taken 01/05/22 09:00] amlodipine 5 mg tablet 5 mg PO QHS #90 tab 05/23/21 [Rx Confirmed 01/05/22 Last Taken 01/04/22 21:00] sodium chloride 1 gram tablet 2,000 mg PO .MWF #90 tab 05/23/21 [Rx Confirmed 01/05/22 Last Taken 01/04/22 13:00] alendronate 70 mg tablet 70 mg PO QWEEK #14 tab 07/28/21 [Rx Confirmed 01/05/22 Last Taken 12/29/21 18:00] losartan 50 mg tablet See Rx Instructions .ROUTE .COMPLEX #60 tab 11/07/21 [Rx Confirmed 01/05/22 Last Taken 01/05/22 09:00] rosuvastatin 10 mg tablet 10 mg PO QDAY #90 tab 12/12/21 [Rx Confirmed 01/05/22 Last Taken 01/05/22 09:00] bupropion HCl 75 mg tablet 150 mg PO QDAY #60 tab 12/15/21 [Rx Confirmed 01/05/22 Last Taken 01/05/22 09:00] hydrocodone 7.5 mg-acetaminophen 325 mg tablet 1 tab PO Q4-6H PRN #120 tab 01/05/22 [Rx Confirmed 01/05/22 Last Taken 01/05/22 05:30] ibuprofen 200 mg tablet 200 mg PO BID 01/05/22 [History Confirmed 01/05/22 Last Taken 01/05/22 09:00] hydrocodone 7.5 mg-acetaminophen 325 mg tablet 1 tab PO Q4H PRN #20 tab 01/06/22 [Rx Last Taken Unknown] COURSE Hospital Course Hospital course: Ms. Ornelas is a 61 year old F smoker with a past medical history significant for CAD, COPD, and EtOH abuse who presents to the hospital with syncope. The patient initially denied drinking heavily however her states that she drinks at a minimum 12 beers daily. The patient states that she was at her motor home when she lost balance and then lost consciousness. She is not completely recall all the events preceding her syncopal episode. Her brought her to the emergency department for further management and evaluation. She had full set of trauma imaging including upper extremity CT, wrist x-ray, elbow x-ray, CT and C-spine CT. The patient's head CT was unrevealing and revealed small hematoma beneath the skin laceration in the left temporal region. CT of the upper extremity revealed fracture of the distal right radius. Lab work revealed a potassium of 2.7, sodium of 122, ALT 48, AST of 82 and an ethyl alcohol level of 0.252. The hospitalist service was asked admit the patient for comanagement to treat her possible alcohol withdrawal and address her multiple electrolyte derangements. Orthopedic surgery will be consulted and she will be taken to the OR tomorrow. In terms of medical management, the patient's sodium is likely hypovolemic hyponatremic in etiology and she will be resuscitated with NS. Her potassium will be repleted via KCl. She will be placed on CIWA protocol for possible alcohol withdrawal. She will benefit from social work consult regarding chemical dependency counseling. Awaiting medication reconciliation In terms of her surgical issues, this will be addressed by orthopedic surgery. She had a syncopal event leading to a right radial wrist fracture. She will be made n.p.o. after midnight and be taken to the OR. 01/06: The patient will continue CIWA protocol. She has opioid tolerance, will continue high-dose IV Dilaudid for the time being. Her electrolytes have all im proved. Her sodium is 131, and potassium is 3.7 today. In terms of her wrist fracture, she will be taken to the OR at noon by orthopedic surgery. 01/07: The patient is 48 hours from her last drink, and the next 24 hours we will have to monitor her closely as her withdrawal will reach peak. Continue CIWA protocol. If the patient is consistently scoring high CIWA scores greater than 20 we will consider Ativan infusion or IV phenobarbital. 01/08: The patient is doing much better today. We will continue CIWA for the next 24 hours although her scores are minimal. Continue to work with PT/OT. She will likely be discharged to intermediate facility tomorrow. We may consider transferring her out of the ICU to the floor 01/09: We will discontinue CIWA protocol today. The patient will be transferred to [facility]. Discussed disposition during multidisciplinary rounds, and she will require preauthorization to intermediate facility. A referral will be made today. 01/10: Initially, the plan was to discharge the patient to intermediate facility however she now declines and wants to go home with home health services. The patient also declined chemical dependence counseling as per social work. She will follow-up with orthopedic surgery in an outpatient setting. Discharge diagnosis: Syncope, EtOH withdrawal, L wrist fracture Time Spent with Patient Time attestation: Total time spent providing and/or coordinating discharge services: Time spent: Greater than 30 minutes EXAM Constitutional Vitals: Temp Pulse Resp BP Pulse Ox 97.8 F 108 H 18 130/91 99 01/10/22 10:24 01/10/22 10:24 01/10/22 07:25 01/10/22 10:24 01/10/22 10:24 General appearance: average body habitus Head Head exam: Present atraumatic, normal inspection and normocephalic Eye Eye exam: Present EOMI, normal appearance and PERRL; Absent conjunctival injection ENT ENT exam: Present normal exam; Absent mucous membranes dry Neck Neck exam: Present full ROM; Absent lymphadenopathy Respiratory Respiratory exam: Present normal respiratory exam and CTAB; Absent decreased breath sounds, respiratory distress or wheezes Cardiovascular Cardiovascular exam: Present normal rate and rhythm and RRR; Absent JVD GI/Abdominal GI/Abdominal exam: Present normal bowel sounds and soft; Absent diminished bowel sounds, distended, guarding, mass, rebound or tenderness Neurological Exam Neurological exam: Present alert, CN II-XII intact and oriented X3 Psychiatric Psychiatric exam: Present normal affect and normal mood Skin Skin exam: Present intact and warm; Absent erythema, pallor, petechiae or rash Discharge Data Data Completed and Pending Labs on day of discharge: Labs from last 24 hours 01/10/22 05:16 Sodium 133 Potassium 3.3 Chloride 97 Carbon Dioxide 25 Anion Gap 11.0 BUN 3 L Creatinine 0.4 L GFR Calculation 111 Glucose 86 Uric Acid 3.1 Calcium 8.9 Phosphorus 4.3 Magnesium 1.8 Total Bilirubin 0.2 Direct Bilirubin < 0.2 GGT 502 H AST 36 H ALT 21 Alkaline Phosphatase 161 H Lactate Dehydrogenase 263 H Total Protein 5.6 L Albumin 3.0 L Globulin 2.6 Albumin/Globulin Ratio 1.2 Triglycerides 60 Discharge Plan Patient/Caregiver Discharge Instructions Activity: as per physical therapy and non-weight bearing Instructions: Hydrocodone/Acetaminophen (By mouth), Wrist Fracture in Adults (DC), Wound Healing and Your Diet (DC) Activity Restrictions/Additional Instructions: Resume a regular diet as tolerated. Increasing calories and protein as tolerated to promote healing. Continue outpatient physical therapy, as ordered, to increase strength. Use mickie walker when ambulating to promote stability. Left wrist instructions: Non-weight bearing to extremity Keep your dressing clean, dry and intact Elevate to help with swelling Work on making a fist and a flat hand Ice as needed, but do not get the dressing wet Hydrocodone-acetaminophen script to supplement to your pain medications only. Vitamin C 1000mg daily for the next 2 months to help decrease the risk of complex regional pain syndrome. You will follow up with JOSE L in 2 weeks to have brace changed to a hard cast. See follow-up appointment below. Call the office with any questions relating to your wrist care. [phone]. Return to the ER for any acute symptoms. Chest pain, shortness of breath, urinary or bowel issues. Prescriptions: New hydrocodone-acetaminophen 7.5-325 mg tablet 1 tab PO Q4H PRN (Reason: pain) Qty: 20 0RF Continued cholecalciferol (vitamin D3) 50 mcg (2,000 unit) capsule 2,000 unit PO .MWF 0RF pantoprazole 40 mg tablet,delayed release (DR/EC) 40 mg PO QAM Qty: 90 2RF amlodipine 5 mg tablet 5 mg PO QHS Qty: 90 2RF sodium chloride 1 gram tablet 2,000 mg PO .MWF Qty: 90 0RF alendronate 70 mg tablet 70 mg PO QWEEK Qty: 14 3RF losartan 50 mg tablet See Rx Instructions .ROUTE .COMPLEX Qty: 60 2RF Dose Instruction: TAKE 1 TABLET BY MOUTH EVERY MORNING AND 1 TABLET EVERY EVENING Rx Instructions: TAKE 1 TABLET BY MOUTH EVERY MORNING AND 1 TABLET EVERY EVENING bupropion HCl 75 mg tablet 150 mg PO QDAY Qty: 60 3RF hydrocodone-acetaminophen 7.5-325 mg tablet 1 tab PO Q4-6H PRN (Reason: pain) Qty: 120 0RF duloxetine 60 mg capsule,delayed release(DR/EC) See Rx Instructions .ROUTE .COMPLEX Qty: 90 4RF Dose Instruction: TAKE 1 CAPSULE BY MOUTH EVERY DAY Rx Instructions: TAKE 1 CAPSULE BY MOUTH EVERY DAY rosuvastatin 10 mg tablet 10 mg PO QDAY Qty: 90 3RF ibuprofen 200 mg Tablet 200 mg PO BID 0RF Follow Up Plan Follow up with: Lisa Mujica MD [Physician] - 01/20/22 10:40 am (Please arrive 15 minutes early for paperwork) Tricia Randolph ARNP [Nurse Practitioner] - 01/12/22 3:15 pm Patient Disposition: Home, Self-Care Prognosis: Fair Rehab Potential: Fair I certify that the patient requires SNF services: No Overall status at discharge: patient is progressing back to baseline Discharge Orders: Discharge Order (Routine); Ordered 01/10/22 Ordered By: Ct FLORES VTE Deep Vein Thrombosis/Pulmonary Embolism Present on Admission: No
== END 2022-01-10 12:15 | disposition home or self-care (01) | DRG 982 ==
LOC: ED 15:09 → ICU 20:11
PROVIDERS: ADMIT Student in an Organized Health Care Education/Training Program; ATTEND Student in an Organized Health Care Education/Training Program